=== PATIENT | male | born 1975 | race Caucasian/White ===

== ENCOUNTER 2018-03-20 12:57 | Emergency (ER) | payer SELFPAY ==
[~2018-03-20] VITALS: Ht 170.2 cm; Wt 84.5 kg
[~2018-03-20 12:57] MED LIST: IBUP-1050 PO; NAPR1TAB48 PO
[2018-03-20 12:59] VITALS: TEMP 36.8; Ht 170.2 cm; Wt 84.5 kg
--- NOTE | 2018-03-20 13:36 | DIAGNOSTIC IMAGING REPORT ---
R FOREARM 2 VIEWS ROUTINE CLINICAL HISTORY: R distal forearm pain, worse with movement. No trauma trauma. Pain. COMPARISON: None. DISCUSSION: The bones and joint spaces appear intact. There is no evidence of fracture, dislocation or bony disease. There is no evidence for soft tissue swelling. IMPRESSION: Negative study. The above report was generated using voice recognition software. It may contain grammatical, syntax or spelling errors. Electronically signed by: Ashutosh Bullard M.D. 03/20/2018 1:34 PM Dictated Date/Time: 03/20/2018 1:33 PM
--- NOTE | 2018-03-20 13:46 | EMERGENCY ROOM VISIT NOTE ---
History First contact with patient: 13:05 Chief Complaint: HAND PAIN/INJURY Stated Complaint: SHARP PAIN IN WRIST TO ELBOW/NUMBING OF HAND History of Present Illness The patient is a 43 year old male who presents to the Emergency Room via private vehicle accompanied by female with complaints of "sharp pain in wrist elbow/numbing of hand". The patient states that for the past 3 weeks he has been experiencing right wrist pain, worse at the distalmost lateral aspect of the right wrist. It is exacerbated by movements of the right thumb. He notes he is right-hand dominant. There is been no fevers or chills. No chest pain or shortness of breath. 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 He states that movement aggravates this. There has been no trauma. Review of Systems A complete 6-point Review of Systems was discussed with the patient, with pertinent positives and negatives listed in the History of Present Illness. All remaining Review of Systems questions can be considered negative unless otherwise specified. Past Medical/Surgical History Surgical Problems: (1) History of hernia repair Family History Cancer Diabetes mellitus Hypertension Social History Smoking Status: Current Every Day Smoker Alcohol Use: occasionally Marital Status: in relationship Housing Status: lives with significant other Occupation Status: employed Current/Historical Medications Scheduled Ibuprofen (Advil), 400 MG PO Q4H Naproxen (Naprosyn), 500 MG PO DAILY Scheduled PRN Hydrocodone/Acetaminophen 5MG/325MG ([place] 5MG/325MG), 1-2 TABLET PO Q6 PRN for Pain Physical Exam Vital Signs Date Time Temp Pulse Resp B/P (MAP) Pulse Ox O2 Delivery O2 Flow Rate FiO2 03/20/18 12:59 36.8 97 18 124/77 98 Room Air Physical Exam VITAL SIGNS - Vital signs and nursing notes were reviewed. Stable. GENERAL -43-year-old male appearing his stated age who is in no acute distress. Communicates well with provider and answers questions appropriately. SKIN - Without rashes. Slight edema noted overlying the patient's right lateral proximal wrist overlying the right extensor pollicis brevis. HEAD - NC/AT. EXTREMITIES - No clubbing or peripheral cyanosis. There is clubbing of the fingernails noted. Overlying the extensor pollicis brevis and the distal tendon with insertion site of the right thumb there is evidence of tenderness and minimal edema. Positive Addi test. He is neurovascularly intact in the right upper extremity. There is tenderness overlying the right extensor pollicis brevis extending proximally to that of the tendinous insertion site at the elbow as well. Full range of motion of the right wrist and hand noted with evidence of reproducible tenderness. Excellent pulse in the right wrist. No tenderness elicited above the location of the right elbow. Left upper extremity unremarkable. Medical Decision & Procedures ER Provider Diagnostic Interpretation: R FOREARM 2 VIEWS ROUTINE CLINICAL HISTORY: R distal forearm pain, worse with movement. No trauma trauma. Pain. COMPARISON: None. DISCUSSION: The bones and joint spaces appear intact. There is no evidence of fracture, dislocation or bony disease. There is no evidence for soft tissue swelling. IMPRESSION: Negative study. The above report was generated using voice recognition software. It may contain grammatical, syntax or spelling errors. Electronically signed by: Ashutosh Bullard M.D. 03/20/2018 1:34 PM Dictated Date/Time: 03/20/2018 1:33 PM Medical Decision Patient was seen and evaluated as above in room D5. Review was performed of nursing notes and vital signs. After obtaining a thorough history and physical examination the above work up was performed. He presents to us today with reproducible tenderness at the location of the right distal wrist with positive Addi test. I suspect likely de Quervain's tenosynovitis. He will be placed in a Velcro thumb spica splint for immobilization and was encouraged to decrease movement and use of the right wrist to the further inflammation could be avoided. He is already taking NSAIDs. I cautioned him upon use/correct use of these. He is to follow with orthopedics for further evaluation and management. He is to ice these regions and elevate. He is to also utilize [place] for severe pain. No red flags in the [place] drug monitoring system. He was given information for center volunteers in medicine as I do recommend follow-up with family doctor as well, as he states he has not seen one since 2002. The patient was educated upon management, had questions answered prior to discharge, and was discharged home in good condition. In the evaluation and treatment of this patient, the following differential diagnoses were considered: Wrist Sprain, Wrist Fracture, Wrist Dislocation, Scapholunate Dissociation, Carpal Fracture, Metacarpal Fracture, Radial Styloid Process Fracture, Ulnar Styloid Process Fracture, or Carpal Tunnel Syndrome. Impression Primary Impression: De Quervain's tenosynovitis, right Departure Information Dispostion Home / Self-Care Condition GOOD Prescriptions Hydrocodone/Acetaminophen 5MG/325MG ([place] 5MG/325MG) Tab 1-2 TABLET PO Q6 Y for Pain, #15 TAB For Initial Treatment Prov: Ramon Wills PA-C 03/20/18 Referrals No Doctor, Assigned (PCP) [facility] Edilson Reyes M.D. Patient Instructions ED De Quervain Tenosynovitis, My [facility] Additional Instructions You have been treated in the Emergency Department for Wrist Pain. You have been prescribed NORCO to be used for pain control. This is a narcotic medication. You cannot drive or consume alcohol while on this medicine. This medicine should only be used for pain that cannot be controlled with over-the- counter pain medicines. Please do not take Tylenol with the [place]. For pain control, you can use the following [id number] medicines (if >12 yo): - Regular strength (325mg/tab) Tylenol (acetaminophen) 2 tabs every 4-6 hours as needed. Do not exceed 12 tablets in a 24 hour period. Avoid taking more than 3 grams (3000 mg) of Tylenol per day. This includes any other sources of acetaminophen you may take on a regular basis. - Regular strength (200 mg/tab) Advil (ibuprofen) 1-2 tabs every 4-6 hours as needed. Do not exceed a dose of 3200 mg per day. If this is a recent injury (<24 hrs), ice can be applied to the area of pain for the first 3 days to help decrease pain and inflammation. You have been provided the number for an Orthopaedic Surgeon. You should call this number as soon as possible to establish a follow-up visit from today's Emergency Department visit. I also recommend following up with the family doctor for routine care. Keep the brace/splint in place until evaluated by Orthopedics. Return to the Emergency Department if your current symptoms worsen despite treatment course outlined above, or if you develop any of the following symptoms : intractable pain despite aforementioned treatment course or new onset of numbness or tingling of the fingers.
[2018-03-20] MEDS ORDERED: HYDR-5688 PO (14:15)
[2018-03-20 14:39] VITALS: BP 145/85; PULSE 89; O2SAT 99
== END 2018-03-20 14:40 | disposition home or self-care (01) ==
LOC: C.EDB 12:59 → C.EDD 14:40
DX: M65.4 Radial styloid tenosynovitis [de Quervain] (principal); R68.3 Clubbing of fingers; F17.200 Nicotine dependence, unspecified, uncomplicated

== ENCOUNTER 2018-07-02 11:46 | Emergency (ER) | payer SELFPAY ==
[~2018-07-02] VITALS: Ht 172.7 cm; Wt 85.8 kg
[~2018-07-02 11:46] MED LIST changes: +HYDR-5688 PO
[2018-07-02 11:52] VITALS: Ht 172.7 cm; Wt 85.8 kg
[2018-07-02 13:04] LABS: BASO % 0.5 %; BASO ABS # 0.05 K/uL (0-0.2); EOS % 4.3 %; EOS ABS # 0.42 K/uL (0-0.5); HEMATOCRIT 41.7 % (42-52); IG# 0.05 K/uL (0.00-0.02); LYMPH % 32.4 %; LYMPH ABS # 3.18 K/uL (1.2-3.4); MEAN CELL VOLUME 91.6 fL (80-100); MEAN CORPUSCULAR HEMOGLOBIN 30.8 pg (25-34); MEAN CORPUSCULAR HGB CONC 33.6 g/dl (32-36); MEAN PLATELET VOLUME 9.8 fL (7.4-10.4); MONO % 9.9 %; MONO ABS # 0.97 K/uL (0.11-0.59); NEUT % 52.4 %; NEUT ABS # 5.13 K/uL (1.4-6.5); PLATELET COUNT 262 K/uL (130-400); RED CELL DISTRIBUTION WIDTH CV 15.1 % (11.5-14.5); RED CELL DISTRIBUTION WIDTH SD 50.9 fL (36.4-46.3)
[2018-07-02 13:10] LABS: BLOOD UREA NITROGEN 8 mg/dl (7-18); CREATININE 0.96 mg/dl (0.60-1.40); GLUCOSE 96 mg/dl (70-99)
[2018-07-02 13:11] LABS: ALBUMIN 3.6 gm/dl (3.4-5.0); ALKALINE PHOSPHATASE 80 U/L (45-117); ALT/SGPT 30 U/L (12-78); AST/SGOT 22 U/L (15-37); CARBON DIOXIDE 25 mmol/L (21-32); LIPASE 1004 U/L (73-393); POTASSIUM 3.9 mmol/L (3.5-5.1); SODIUM 139 mmol/L (136-145); TOTAL PROTEIN 7.1 gm/dl (6.4-8.2)
--- NOTE | 2018-07-02 13:27 | DIAGNOSTIC IMAGING REPORT ---
ABDOMEN 2VIEW W/PA CHEST RTN HISTORY: 43 years-old Male abdominal pain diffuse chronic generalized abdominal pain. COMPARISON: Chest radiograph 10/18/2013, CT abdomen and pelvis 10/15/2013 TECHNIQUE: PA view of the chest with erect and supine views of the abdomen FINDINGS: Cardiomediastinal and hilar silhouettes are within normal limits. Mild right hemidiaphragmatic elevation. Linear subsegmental bibasilar opacities without pneumothorax, pleural effusion or overt pulmonary edema. Bones of the chest appear grossly intact. The bowel gas pattern is nonobstructive. No urolith identified. No pneumatosis or pneumoperitoneum. The bones appear grossly intact. IMPRESSION: 1. Nonobstructive bowel gas pattern. 2. Linear subsegmental bibasilar opacities suggest atelectasis. The above report was generated using voice recognition software. It may contain grammatical, syntax or spelling errors. Electronically signed by: Dylan Houser M.D. 07/02/2018 1:26 PM Dictated Date/Time: 07/02/2018 1:24 PM
[2018-07-02] MEDS ORDERED: SODIUM CHLORIDE 0.9% 1000ML 1,000 ML IV STA (13:47)
[2018-07-02] MEDS ORDERED: MoRPHine SULFATE 4 MG/ML 1 ML CARP\\VIAL IV STA (13:47)
--- NOTE | 2018-07-02 14:37 | EMERGENCY ROOM VISIT NOTE ---
History Report prepared by Vickie: Yin Alarcon Under the Supervision of: Dr. Rik Lomeli M.D. First contact with patient: 12:26 Chief Complaint: ABDOMINAL PAIN Stated Complaint: BOWEL AND STOMACH ISSUES AND BEING VERY WELL Nursing Triage Summary: pt states constipated for 4-5 days. states, "I have tried laxatives and other stuff, nothing works." pt states he feels the urge to go, but cannot produce a bm. pt states abd pain of 6/10 in all quardrants. pt states that he passe flatulace every so often. History of Present Illness The patient is a 43 year old male who presents to the Emergency Room with complaints of worsening abdominal pain starting 4 days ago. The patient states that his abdomen feels hard. He states that the pain radiates into his back and down into his groin. He notes that the pain is worse with movement. The patient denies hematuria, nausea, and vomiting. He notes that he smokes on average a pack a day. He notes a history of bilateral hernia surgery in 2013. Source of History: patient Onset: 4 dasy ago Position: abdomen Quality: other (hard, radiating) Timing: worsening Modifying Factors (Worsening): movement Associated Symptoms: + back pain, No nausea, No vomiting, No urinary symptoms Note: The patient complains of groin pain. Review of Systems See HPI for pertinent positives and negatives. A total of ten systems were reviewed and were otherwise negative. Past Medical & Surgical Surgical Problems: (1) History of hernia repair Family History Cancer Diabetes mellitus Hypertension Social History Smoking Status: Current Every Day Smoker Alcohol Use: occasionally Drug Use: none Marital Status: in relationship Housing Status: lives with significant other Occupation Status: employed Current/Historical Medications Scheduled Ondasetron Odt (Zofran Odt), 4 MG SL TID Allergies Coded Allergies: No Known Allergies (Verified , 07/02/18) Physical Exam Vital Signs Date Time Temp Pulse Resp B/P (MAP) Pulse Ox O2 Delivery O2 Flow Rate FiO2 07/02/18 16:57 76 16 121/81 99 07/02/18 15:40 121/81 07/02/18 15:13 76 16 128/89 99 Room Air 07/02/18 15:12 128/89 07/02/18 13:38 119/71 07/02/18 13:38 75 18 119/71 95 Room Air 07/02/18 11:52 36.7 89 20 131/80 98 Room Air Physical Exam Physical Exam GENERAL: He is oriented to person, place, and time. He appears well-developed and well-nourished. He does not appear distressed. HENT: Exam performed. Head: Normocephalic and atraumatic. Right Ear: External ear normal. No mastoid tenderness. Left Ear: External ear normal. No mastoid tenderness. Mouth/Throat: The oropharynx is clear and moist. No trismus in the jaw. No dental abscesses or uvula swelling. No oropharyngeal exudate or tonsillar abscesses. EYES: Conjunctivae and EOM are normal. Pupils are equal, round, and reactive to light. Right eye exhibits no discharge. Left eye exhibits no discharge. No scleral icterus. NECK: Normal range of motion. Neck supple. No JVD present. No spinous process tenderness present. No carotid bruit present. No rigidity. No tracheal deviation and normal range of motion present. No Brudzinski's sign and no Kernig 's sign noted. CV: Normal rate, regular rhythm, normal heart sounds and intact distal pulses. There is no peripheral edema. Palpable radial pulses bue. PULM/CHEST: Effort normal and breath sounds normal. No respiratory distress. No stridor. He has no wheezes. He has no rales. Chest Wall: He exhibits no tenderness. ABD: The abdomen is soft. Bowel sounds are normal. He has no distension. No mass is present. There is diffuse tenderness upon palpation. There is no rebound , no guarding, no Campo's sign and no tenderness at McBurney's point. Rovsig negative. : No inguinal hernia bilaterally. No lesions on genitalia. No penile discharge. MUSC/SKEL: Normal range of motion. There is no peripheral edema, tenderness or deformity. LYMPH: No cervical adenopathy. NEURO: He is alert and oriented to person, place, and time. He has normal strength. No cranial nerve deficit or sensory deficit. Coordination and gait normal. GCS eye subscore is 4. GCS verbal subscore is 5. GCS motor subscore is 6. Cerebellar tests wnl. SKIN: Skin is warm and dry. He is not diaphoretic. PSYCH: He has a normal mood and affect. Behavior is normal. Judgment and thought content normal. Medical Decision & Procedures ER Provider Diagnostic Interpretation: Radiology results as stated below per my review and radiologist interpretation: ABDOMEN 2VIEW W/PA CHEST RTN HISTORY: 43 years-old Male abdominal pain diffuse chronic generalized abdominal pain. COMPARISON: Chest radiograph 10/18/2013, CT abdomen and pelvis 10/15/2013 TECHNIQUE: PA view of the chest with erect and supine views of the abdomen FINDINGS: Cardiomediastinal and hilar silhouettes are within normal limits. Mild right hemidiaphragmatic elevation. Linear subsegmental bibasilar opacities without pneumothorax, pleural effusion or overt pulmonary edema. Bones of the chest appear grossly intact. The bowel gas pattern is nonobstructive. No urolith identified. No pneumatosis or pneumoperitoneum. The bones appear grossly intact. IMPRESSION: 1. Nonobstructive bowel gas pattern. 2. Linear subsegmental bibasilar opacities suggest atelectasis. The above report was generated using voice recognition software. It may contain grammatical, syntax or spelling errors. Electronically signed by: Dylan Houser M.D. 07/02/2018 1:26 PM Dictated Date/Time: 07/02/2018 1:24 PM Laboratory Results 07/02/18 12:38 Red Blood Count 4.55, Mean Corpuscular Volume 91.6, Mean Corpuscular Hemoglobin 30.8, Mean Corpuscular Hemoglobin Concent 33.6, Mean Platelet Volume 9.8, Neutrophils (%) (Auto) 52.4, Lymphocytes (%) (Auto) 32.4, Monocytes (%) (Auto) 9.9, Eosinophils (%) (Auto) 4.3, Basophils (%) (Auto) 0.5, Neutrophils # (Auto) 5.13, Lymphocytes # (Auto) 3.18, Monocytes # (Auto) 0.97, Eosinophils # (Auto) 0.42, Basophils # (Auto) 0.05 07/02/18 12:38 Test 07/02/18 12:38 07/02/18 13:15 White Blood Count 9.80 K/uL (4.8-10.8) Red Blood Count 4.55 M/uL (4.7-6.1) Hemoglobin 14.0 g/dL (14.0-18.0) Hematocrit 41.7 % (42-52) Mean Corpuscular Volume 91.6 fL (80-100) Mean Corpuscular Hemoglobin 30.8 pg (25-34) Mean Corpuscular Hemoglobin Concent 33.6 g/dl (32-36) Platelet Count 262 K/uL (130-400) Mean Platelet Volume 9.8 fL (7.4-10.4) Neutrophils (%) (Auto) 52.4 % Lymphocytes (%) (Auto) 32.4 % Monocytes (%) (Auto) 9.9 % Eosinophils (%) (Auto) 4.3 % Basophils (%) (Auto) 0.5 % Neutrophils # (Auto) 5.13 K/uL (1.4-6.5) Lymphocytes # (Auto) 3.18 K/uL (1.2-3.4) Monocytes # (Auto) 0.97 K/uL (0.11-0.59) Eosinophils # (Auto) 0.42 K/uL (0-0.5) Basophils # (Auto) 0.05 K/uL (0-0.2) RDW Standard Deviation 50.9 fL (36.4-46.3) RDW Coefficient of Variation 15.1 % (11.5-14.5) Immature Granulocyte % (Auto) 0.5 % Immature Granulocyte # (Auto) 0.05 K/uL (0.00-0.02) Anion Gap 7.0 mmol/L (3-11) Est Creatinine Clear Calc Drug Dose 107.9 ml/min Estimated GFR () 113.3 Estimated GFR (Non- 97.8 BUN/Creatinine Ratio 8.2 (10-20) Calcium Level 9.0 mg/dl (8.5-10.1) Total Bilirubin 0.3 mg/dl (0.2-1) Direct Bilirubin < 0.1 mg/dl (0-0.2) Aspartate Amino Transf (AST/SGOT) 22 U/L (15-37) Alanine Aminotransferase (ALT/SGPT) 30 U/L (12-78) Alkaline Phosphatase 80 U/L (45-117) Total Protein 7.1 gm/dl (6.4-8.2) Albumin 3.6 gm/dl (3.4-5.0) Lipase 1004 U/L (73-393) Urine Color YELLOW Urine Appearance CLEAR (CLEAR) Urine pH 6.5 (4.5-7.5) Urine Specific [place] 1.014 (1.000-1.030) Urine Protein NEG (NEG) Urine Glucose (UA) NEG (NEG) Urine Ketones NEG (NEG) Urine Occult Blood NEG (NEG) Urine Nitrite NEG (NEG) Urine Bilirubin NEG (NEG) Urine Urobilinogen NEG (NEG) Urine Leukocyte Esterase NEG (NEG) Laboratory results reviewed by me Medications Administered Medications (Trade) Dose Ordered Sig/Carlos Route Start Time Stop Time Status Last Admin Dose Admin Sodium Chloride 1,000 ml @ 999 mls/hr Q1H1M STAT IV 07/02/18 13:47 07/02/18 14:47 DC 07/02/18 14:09 999 MLS/HR Morphine Sulfate (MoRPHine SULFATE INJ) 4 mg NOW STAT IV 07/02/18 13:47 07/02/18 13:49 DC 07/02/18 14:10 4 MG Miscellaneous (Soap Suds Enema) 1 ea NOW ONCE HI 07/02/18 15:30 07/02/18 15:40 DC 07/02/18 16:18 1 EA ED Course 1227: The patient was evaluated in room A12B. A complete history and physical exam was performed. 1347: Ordered Morphine Sulfate 4 mg IV, NSS 1000 ml @ 999 mls/hr IV. 1356: I reevaluated the patient at this time. His vital signs were stable. Repeat abdominal exam revealed that he is still having tenderness. His labs show an elevated Lipase of 1004. I discussed the need for admission for Pancreatitis with the patient. He verbally agrees and understands the treatment plan. 1404: Discussed the patient's case with Dr. Collazo- [facility] Hospitalist. The patient will be evaluated for further treatment and disposition. 1640: The patient was evaluated by Dr. Collazo's service. They ordered a CT of the abdomen without contrast. The CT showed no abnormalities. Given the results of the CT showing no abnormalities, his service believe that the patient can go home, as he doesn't want anyone to stay either. I discussed with them that a CT of the abdomen without contrast is not standard of care to truly visualize if it is pancreatitis or not. Despite not being with contrast, they state that the patient doesn't want to stay and can go home. I discussed this with the patient and he doesn't want to stay in the hospital after speaking with the hospitalist. He will follow up with GI. Medical Decision 1227: The patient was evaluated in room A12B. A complete history and physical exam was performed. 1347: Ordered Morphine Sulfate 4 mg IV, NSS 1000 ml @ 999 mls/hr IV. 1356: I reevaluated the patient at this time. His vital signs were stable. Repeat abdominal exam revealed that he is still having tenderness. His labs show an elevated Lipase of 1004. I discussed the need for admission for Pancreatitis with the patient. He verbally agrees and understands the treatment plan. 1404: Discussed the patient's case with Dr. John CARDENAS Hospitalist. The patient will be evaluated for further treatment and disposition. 1640: The patient was evaluated by Dr. Collazo's service. They ordered a CT of the abdomen without contrast. The CT showed no abnormalities. Given the results of the CT showing no abnormalities, his service believe that the patient can go home, as he doesn't want anyone to stay either. I discussed with them that a CT of the abdomen without contrast is not standard of care to truly visualize if it is pancreatitis or not. Despite not being with contrast, they state that the patient doesn't want to stay and can go home. I discussed this with the patient and he doesn't want to stay in the hospital after speaking with the hospitalist. He will follow up with GI. Medication Reconcilliation Current Medication List: was personally reviewed by me Blood Pressure Screening Patient's blood pressure: Normal blood pressure Blood pressure disposition: Did not require urgent referral Consults Time Called: [id number] Consulting Physician: Dr. John CARDENAS Hospitalist Returned Call: [phone] Discussed the patient's case with Dr. John CARDENAS Hospitalist. The patient will be evaluated for further treatment and disposition. Impression Primary Impression: Pancreatitis Scribe Attestation The scribe's documentation has been prepared under my direction and personally reviewed by me in its entirety. I confirm that the note above accurately reflects all work, treatment, procedures, and medical decision making performed by me. The chart was completed utilizing [employer] voice recognition software. Grammatical errors, random word insertions, pronoun errors, and incomplete sentences are an occasional consequence of this system due to software limitations, ambient noise, and hardware issues. Any formal questions or concerns about the content, text, or information contained within the body of this dictation should be directly addressed to the physician for clarification. Departure Information Dispostion Home / Self-Care Prescriptions Ondasetron Odt (ZOFRAN ODT) 4 Mg Tab 4 MG SL TID for Nausea, #30 TAB Prov: Rik Lomeli M.D. 07/02/18 Referrals No Doctor, Assigned (PCP) Forms Call Back Authorization, HOME CARE DOCUMENTATION FORM, IMPORTANT VISIT INFORMATION Patient Instructions [facility] Additional Instructions Return to the emergency department for develop fever greater 100.4, vomiting, black stools, blood in your stool, chest pain, typically breathing, abdominal pain worsens. Problem Qualifiers Primary Impression: Pancreatitis Chronicity: acute Pancreatitis type: unspecified pancreatitis type Acute pancreatitis complication: unspecified Qualified Codes: K85.90 - Acute pancreatitis without necrosis or infection, unspecified
[2018-07-02] MEDS ORDERED: BISACODYL 10 MG SUPP PR STA (15:17)
[2018-07-02] MEDS ORDERED: SOAP SUDS ENEMA PR ONE (15:30)
--- NOTE | 2018-07-02 16:22 | DIAGNOSTIC IMAGING REPORT ---
CT SCAN OF THE ABDOMEN AND PELVIS WITHOUT CONTRAST CLINICAL HISTORY: ELEVATED LIPASE, RIGHT FLANK PAIN, POSSIBLE PANCREATITIS COMPARISON STUDY: 10/15/2013 TECHNIQUE: CT scan of the abdomen and pelvis was performed from the lung bases to the proximal femurs. Images are reviewed in the axial, sagittal, and coronal planes. IV contrast was not administered for this examination. A dose lowering technique was utilized adhering to the principles of ALARA. CT DOSE: 968.21 mGycm FINDINGS: Lower chest: There are moderate basilar atelectatic changes. Liver: The unenhanced liver is normal in size, contour, and attenuation. There is no intrahepatic biliary ductal dilatation. Gallbladder: Unremarkable. Spleen: Normal in size and attenuation. Pancreas: Unremarkable. Adrenal glands: Unremarkable. Kidneys: There is no hydronephrosis. No renal, ureteral, or bladder calculi are visualized. Bowel: There are no transition zones indicate bowel obstruction. The appendix appears normal. There is no acute diverticulitis. Peritoneum: There is no intraperitoneal free air or abdominal ascites. Vasculature: The abdominal aorta is normal in course and caliber. Adenopathy: None. Pelvic viscera: The bladder, and pelvic viscera are unremarkable. Skeletal structures: No destructive osseous lesions are seen. IMPRESSION: 1. Basilar atelectasis 2. No evidence of bowel obstruction. No evidence of free air 3. No renal, ureteral, or bladder calculi identified 4. Normal appendix 5. No pancreatic abnormalities are visualized on this noncontrast study Electronically signed by: Jamshid Collado M.D. 07/02/2018 4:21 PM Dictated Date/Time: 07/02/2018 4:16 PM
[2018-07-02] MEDS ORDERED: ONDA4TAB10 SL (16:48)
--- NOTE | 2018-07-02 16:55 | Medical Consult ---
Consultation Date of Consultation: Jul 02, 2018. Attending Physician: Dr. Lomeli Reason for Consultation: abdominal pain, elevated lipase History of Present Illness Mr. Parra started having pain in his abdomen four days ago. He has been constipated without a bowel movement since Friday. No nausea or vomiting, no change in appetite. His abdominal pain is lower in his belly like he really needs to have a bowel movement. He feels constantly full. He does have pain up his right side intermittently especially with movement which is painful enough to take his breath way. The back pain has also been since Friday. He did have bilateral inguinal hernia surgery in 2013. He was at [employer] Friday and Friday. He drinks 2 beers or so every two or three weeks. He is a smoker, a pack per day. ROS Constitutional: no chills, aches, sweats or fever Respiratory: no sob,cough, sputum, or wheezing Cardiac: no chest pain, palpitations, edema, orthopnea or lightheadedness GI: no abdominal pain, nausea, vomiting, diarrhea or constipation : no dysuria or hesitancy Extremities: no joint pain or weakness Skin: no rash All other systems reviewed and negative Past Medical/Surgical History Medical Problems: (1) De Quervain's tenosynovitis, right Status: Acute (2) Pancreatitis Status: Acute Family History Cancer Diabetes mellitus Hypertension Father had a heart attack in his early 40s, of lung cancer Social History Smoking Status: Current Every Day Smoker Drug Use: none Marital Status: in relationship Housing Status: lives with significant other Occupation Status: employed Allergies Coded Allergies: No Known Allergies (Verified , 07/02/18) Home Medications Active No Active Prescriptions or Reported Medications Review of Systems General: no distress Eyes: normal inspection, PERLL Respiratory: chest non tender, clear to auscultation, normal breath sounds, no respiratory distress, no accessory muscle use Cardiac: regular rate and rhythm, no rub or gallop, no murmur, no edema, no jvd GI/: active bowel sounds, lower abdominal pain bilaterally, mild distention, mildly firm, right costovertebral tenderness Extremities: normal range of motion, normal strength, non tender Neuro/Psych: alert and oriented x 3, normal mood and affect Skin: normal color, dry Physical Exam Date Time Temp Pulse Resp B/P (MAP) Pulse Ox O2 Delivery O2 Flow Rate FiO2 07/02/18 15:40 121/81 07/02/18 15:13 76 16 128/89 99 Room Air 07/02/18 15:12 128/89 07/02/18 13:38 119/71 07/02/18 13:38 75 18 119/71 95 Room Air 07/02/18 11:52 36.7 89 20 131/80 98 Room Air Laboratory Results Last 24 Hours Test 07/02/18 12:38 07/02/18 13:15 White Blood Count 9.80 K/uL Red Blood Count 4.55 M/uL Hemoglobin 14.0 g/dL Hematocrit 41.7 % Mean Corpuscular Volume 91.6 fL Mean Corpuscular Hemoglobin 30.8 pg Mean Corpuscular Hemoglobin Concent 33.6 g/dl Platelet Count 262 K/uL Mean Platelet Volume 9.8 fL Neutrophils (%) (Auto) 52.4 % Lymphocytes (%) (Auto) 32.4 % Monocytes (%) (Auto) 9.9 % Eosinophils (%) (Auto) 4.3 % Basophils (%) (Auto) 0.5 % Neutrophils # (Auto) 5.13 K/uL Lymphocytes # (Auto) 3.18 K/uL Monocytes # (Auto) 0.97 K/uL Eosinophils # (Auto) 0.42 K/uL Basophils # (Auto) 0.05 K/uL RDW Standard Deviation 50.9 fL RDW Coefficient of Variation 15.1 % Immature Granulocyte % (Auto) 0.5 % Immature Granulocyte # (Auto) 0.05 K/uL Sodium Level 139 mmol/L Potassium Level 3.9 mmol/L Chloride Level 107 mmol/L Carbon Dioxide Level 25 mmol/L Anion Gap 7.0 mmol/L Blood Urea Nitrogen 8 mg/dl Creatinine 0.96 mg/dl Est Creatinine Clear Calc Drug Dose 107.9 ml/min Estimated GFR () 113.3 Estimated GFR (Non- 97.8 BUN/Creatinine Ratio 8.2 Random Glucose 96 mg/dl Calcium Level 9.0 mg/dl Total Bilirubin 0.3 mg/dl Direct Bilirubin < 0.1 mg/dl Aspartate Amino Transf (AST/SGOT) 22 U/L Alanine Aminotransferase (ALT/SGPT) 30 U/L Alkaline Phosphatase 80 U/L Total Protein 7.1 gm/dl Albumin 3.6 gm/dl Lipase 1004 U/L Urine Color YELLOW Urine Appearance CLEAR Urine pH 6.5 Urine Specific [place] 1.014 Urine Protein NEG Urine Glucose (UA) NEG Urine Ketones NEG Urine Occult Blood NEG Urine Nitrite NEG Urine Bilirubin NEG Urine Urobilinogen NEG Urine Leukocyte Esterase NEG Assessment & Plan This is a 43 year old man here for abdominal pain. There was an elevation in his lipase at 1000. A non contrast CT did not show any pancreatic abnormality. I do not think a contrast CT is warranted given that the patient did not have any symptoms of pancreatitis such as epigastric tenderness or any vomiting or decreased appetite. I do think he has some constipation. I reviewed the CT with attending physician and he does appear to have stool in his rectum. Would recommend soap suds enema now. I would not recommend admission and patient would like to go home. Discharge with clear liquid diet and cathartics. Patient should return to the ED if he develops vomiting or increased epigastric pain. I will also put in a request with the nurse navigator to set him up for a follow up with a pcp. I discussed these recommendations with the patient and he vocalized his understanding and agrees with the plan. CT Abdomen/pelvis w/o contrast showed: IMPRESSION: 1. Basilar atelectasis 2. No evidence of bowel obstruction. No evidence of free air 3. No renal, ureteral, or bladder calculi identified 4. Normal appendix 5. No pancreatic abnormalities are visualized on this noncontrast study SECTION HAND HELPER Physician Supervision Note: I discussed with Bertha Stratton SECTION HAND HELPER and agree with findings and plan as documented in the note. Any exceptions or clarifications are listed here: None I visited the patient and examined him in the emergency department. His abdominal exam was only with minor tenderness normoactive bowel sounds soft no rebound no guarding he had no evidence of recurrent inguinal hernias. Chayito and I reviewed the CAT scan report did not show any evidence of acute pancreatitis noted the patient exhibit any clinical symptoms that are in alignment with his elevated lipase. I do believe this is a spurious lab reading. Patient's biggest concern when I saw him was a lack of having a bowel movement 5 days which was achieved in the ER. The patient will be discharged home encouraged to have a light meal to clear liquid diet for the next 24 hours avoiding alcohol for the next 1 week to establish care with a primary care provider. As always if the patient does worsen he should return to the emergency department Documented By: Raphael Lira
[2018-07-02 16:57] VITALS: BP 121/81; PULSE 76; O2SAT 99
== END 2018-07-02 16:55 | disposition home or self-care (01) ==
LOC: C.EDB 11:48 → C.EDA 16:55
DX: K85.90 Acute pancreatitis without necrosis or infection, unspecified (principal); F17.200 Nicotine dependence, unspecified, uncomplicated

== ENCOUNTER 2020-02-19 18:00 | Inpatient (IN) ==
[2020-02-19] MEDS ORDERED: METOCLOPRAMIDE HCL INJ 5 MG/ML 2 ML VIAL ONE (18:03)
--- OUTSIDE RECORDS SUMMARY | 2020-02-19 18:03 | External Medical Summary | Continuity of Care Document ---
:1975 Author Name Merry Birch, Provider Address Unavailable Unavailable , Care Team Providers Name Role Phone Иван Brewster [email or web address] PCP, UNKNOWN Unavailable Unavailable Unavailable Unavailable Unavailable Problems Dyslipidemia (272.4) (E78.5) Acute myocardial infarction of inferior wall (410.40) (I21.1 9) Non-sustained ventricular tachycardia (427.1) (I47.2) Current smoker (305.1) (F17.200) Allergies and Adverse Reactions Allergy history not documented Medications Brilinta 90 MG Oral Tablet; take 1 tablet by mouth twice a d ay Refills: 0 Metoprolol Tartrate 25 MG Oral Tablet; take 1/2 tablet by mo uth twice a day Refills: 0 Lisinopril 2.5 MG Oral Tablet; TAKE 1 TABLET BY MOUTH ONCE DAILY IN THE MORNING Refills: 0 Atorvastatin Calcium 80 MG Oral Tablet; TAKE 1 TABLET BY MOUTH ONCE DAILY IN THE MORNING Refills: 0 Aspirin Low Dose 81 MG TABS; TAKE 1 TABLET BY MOUTH IN THE M ORNING Refills: 0 Procedures Procedures not documented Immunizations Immunizations not documented Social History - Smoking Status Smoker Plan of Treatment Planned Observations Planned Goals not documented Results No Known Results Results not documented Encounters Appointment; Иван Brewster M.D. 05-Oct-2018 15:00 Encounter Diagnosis: Problem not documented Appointment; Иван Brewster M.D. 01-Jan-2019 11:30 Encounter Diagnosis: Problem not documented
[2020-02-19] MEDS ORDERED: MoRPHine SULFATE 10 MG/ML CARP/VIAL ONE (18:04)
[2020-02-19] MEDS ORDERED: TICAGRELOR 90 MG TAB PO ONE (18:08)
--- NOTE | 2020-02-19 18:11 | XRay Report ---
XR chest 1V portable HISTORY: 45 years-old Male Chest pain acute atypical chest pain COMPARISON: Chest radiograph 09/17/2018 TECHNIQUE: Portable AP view of the chest FINDINGS: Cardiac silhouette is upper limits of normal in size, unchanged. No pneumothorax, pleural effusion, a irspace consolidation or overt pulmonary edema. Minimal convex right curvature of the upper thoracic spine. The bones appear grossly intact. IMPRESSION: No acute process. ACT 112: Negative or not required by law. The above report was generated using voice recognition software. It may contain grammatical, syntax o r spelling errors. Electronically signed by: Dylan Houser M.D. 02/19/2020 6:10 PM
[2020-02-19] MEDS ORDERED: HEPARIN (PORCINE) 1000 UNIT/ML 10 ML (CATH LAB USE ONLY) ONE (18:13)
[2020-02-19] MEDS ORDERED: NiCARDipine HCL INJ 2.5 MG/ML 10 ML AMP ONE (18:13)
[2020-02-19] MEDS ORDERED: NITROGLYCERIN/D5W 100MCG/ML 20ML SYR ONE (18:14)
[2020-02-19] MEDS ORDERED: fentaNYL citrate 100 MCG/2 ML VIAL ONE (18:14)
[2020-02-19] MEDS ORDERED: MIDAZOLAM HCL 1 MG/ML 2ML VIAL ONE (18:14)
[2020-02-19] MEDS ORDERED: DiphenhydrAMINE HCL 50 MG/ML VIAL IV STA (18:16)
[2020-02-19] MEDS ORDERED: DiphenhydrAMINE HCL 50 MG/ML VIAL ONE (18:17)
[2020-02-19] MEDS ORDERED: HEPARIN SOD (PORCINE) 1000 UNIT/ML 10 ML VIAL IV ONE (18:18)
[2020-02-19] MEDS ORDERED: HEPARIN SOD (PORCINE) 1000 UNIT/ML 10 ML VIAL ONE (18:19)
--- NOTE | 2020-02-19 18:29 | Pre Anesthesia Assessment ---
Date of Service February 19, 2020 Pre Sedation Assessment Vital Signs Temp Pulse Pulse Resp BP BP Pulse Ox 02/19/20 17:58 98.4 F 99 H 99 H 22 124/84 124/84 96 Cardiovascular RRR, no murmur, no edema Respiratory normal respiratory effort, lungs clear to auscultation Pre-Sedation Airway Assessment Smoking Status: Current every day smoker Hx Sleep Apnea: No Hx Difficult Intubation: No Oral Cavity: + Dental Abnormalities Mallampati Class: II ASA: ASA4 Procedure Planning Contraindications for Sedation: none Current Medications Reviewed: Yes Notes The planned sedation has been discussed with the patient. Informed Consent was obtained. I have identified the patient, determined the appropriateness of sedation and have assessed the patient immediately prior to the procedure. All medicine(s) and interventions are by my order.
--- NOTE | 2020-02-19 18:32 | Cardiology Consultation ---
Date of Consultation February 19, 2020 Assessment & Plan (1) Acute VT, inferior wall: Presentation consistent with inferior STEMI and concerning for very late stent thrombosis. Recommend proceeding with emergent cardiac catheterization and likely primary PCI. No apparent contraindications to procedure. Discussed risks, benefits, alternatives of procedure with patient and they are willing to proceed. Given IV heparin and ticagrelor 180 mg in the ED. Further recommendations pending findings of coronary angiography. History of Present Illness History of Present Illness 45-year-old man here with acute chest pain and ECG concerning for acute VT. Patient seen emergently in the ED after heart alert activated from ambulance in route. Past cardiac history remarkable for inferior STEMI in September 2018 treated with primary PCI and single drug-eluting stent to latemid RCA. Other medical issues include dyslipidemia, ongoing tobacco abuse and family history of premature coronary disease. Chest pain began approximately 1 hour prior to arrival while moving his motorcycle around his driveway. Describes 10 out of 10 pain with associated nausea, diaphoresis. Pain similar but more severe than what had with prior event. Of note had recently stopped prior cardiac meds due to cost. Chest pain at time of interview for/10. Hemodynamically stable. EKG showed inferior ST elevations. Allergies Allergy/AdvReac Type Severity Reaction Status Date / Time No Known Allergies Allergy Verified 02/19/20 18:09 Home Medications Home Medications Medication Instructions Recorded Confirmed Type No Known Home Medications 02/13/19 02/19/20 History Patient History Medical History (Updated 02/28/19 @ 00:02 by Marcello Ahn) Acute VT, inferior wall (Acute) Chest pain (Acute) Dyslipidemia Inguinal hernia, bilateral (Acute) Myocardial infarction, posterior wall (Acute) Non-sustained ventricular tachycardia Syncope (Acute) Surgical History (Updated 09/17/18 @ 17:09 by Beena Matthew) History of hernia repair (Resolved 2012) Family History (Updated 09/17/18 @ 17:09 by Beena Matthew) Other Myocardial infarction Social History (Updated 02/17/19 @ 18:42 by Russell Navarrete PA-C) Preferred Language: Wallisian Communication Ability: Effective Visual Impairment: No Limitations Hearing Ability: Normal Beliefs That Will Affect Care: None marital status: Single Current Living Situation: Significant Other current occupational status: employed Feels Safe at Home: Yes Smoking Status: Current every day smoker Tobacco Type: cigarettes ; Cigarettes Per Day: 20 ; Hx Alcohol Use: Yes Alcohol type: hard liquor Hx Substance Use: No Results & Data ([facility]) Vital Signs (Past 12 Hours) Vital Signs Temp Pulse Pulse Resp BP BP Pulse Ox 02/19/20 17:58 98.4 F 99 H 99 H 22 124/84 124/84 96 PG Care Time/CCT Total # of Minutes Spent Total Time Spent with Patient: Total time spent is greater than 50% in coordination of care (as documented) at patient's floor/unit and/or counseling patient: Coding Diagnoses Acute VT, inferior wall I21.19
[2020-02-19] MEDS ORDERED: NOREPINEPHRINE BITARTRATE 1 MG/ML 4 ML VIAL (CATH LAB USE ONLY) ONE (18:48)
--- NOTE | 2020-02-19 18:49 | Emergency Department Note ---
History of Present Illness General Chief complaint: Chest Pain Stated complaint: cardiac alert Source: patient, EMS, RN notes reviewed and old records reviewed Mode of arrival: EMS Limitations: no limitations History of Present Illness Provider complaint: chest pain Onset (ago): hour(s) 1 Location: chest Radiation: neck Severity: moderate Pain Consistency: + constant Maximum Pain Intensity: 7 Current Pain Intensity: 7 Quality: + crushing Relieved By: + medication (NSS, nitro) Treatments prior to arrival: other (NSS, aspirin, Nitro) This is a 45-year-old male who was moving a motorcycle into his house approximately 1 hour ago when he developed severe chest pain. An ambulance was called. The patient in the meanwhile took 324 mg of aspirin. In the ambulance the patient was given 2 nitro as well as normal saline bolus and Zofran. Upon arrival to the emergency department the patient describes the pain as crushing radiating up into his neck. He has a history of a stent placed back in 2017 ho sabrina stopped taking his medications due to cost several months ago. Home Medications Home Medications Medication Instructions Recorded Confirmed Type No Known Home Medications 02/13/19 02/19/20 History Allergies Allergy/AdvReac Type Severity Reaction Status Date / Time No Known Allergies Allergy Verified 02/19/20 18:09 Past Med/Surg History Medical History (Updated 02/19/20 @ 19:45 by MARCIN Aiken) Acute FL, inferior wall (Acute) Chest pain (Acute) Dyslipidemia Inguinal hernia, bilateral (Acute) Myocardial infarction, posterior wall (Acute) Non-sustained ventricular tachycardia Syncope (Acute) Surgical History (Updated 02/19/20 @ 19:45 by MARCIN Aiken) History of hernia repair (Resolved 2012) Stented coronary artery Family History Other Myocardial infarction Social History Preferred Language: Yemeni Communication Ability: Effective Visual Impairment: No Limitations Hearing Ability: Normal Reconciliation Manager Required: No Beliefs That Will Affect Care: None marital status: Single Current Living Situation: Alone current occupational status: employed Other Information That Helps Us Care for You: No Feels Safe at Home: Yes Safety Concerns: Feels Safe At This Time Smoking Status: Current every day smoker Tobacco Type: cigarettes ; Cigarettes Per Day: 20 ; Do You Dip or Chew Tobacco: No ; Second Hand Exposure: No ; Tobacco Cessation Education Requested by Patient: No Hx Alcohol Use: Yes Alcohol type: wine Hx Substance Use: Yes substance use type: marijuana Last Used Substance: Days (ago) Review of Systems A total of 10 systems reviewed and were otherwise negative Physical Exam Vital Signs Vital Signs - 24 hr 02/19/20 17:58 02/19/20 18:03 02/19/20 18:15 Temperature 36.9 C Temperature Source Oral Pulse Rate 99 H 95 H 108 H Pulse Rate [Apical] 99 H Respiratory Rate 22 19 26 H Respiratory Effort / Characteristics Short of Breath Blood Pressure 124/84 124/84 Blood Pressure [Right Arm] 124/84 Blood Pressure Mean 97 90 Blood Pressure Mean [Right Arm] 97 Blood Pressure Position Lying Pulse Oximetry 96 Oxygen Delivery Method Room Air Sepsis Recent Fever Within 48 Hours No Sepsis New/Unexplained Change in Mental Status No Sepsis Action Taken by Nursing No Action Required 02/19/20 18:25 Temperature 36.9 C Temperature Source Oral Pulse Rate 92 H Pulse Rate [Apical] 92 H Respiratory Rate 20 Respiratory Effort / Characteristics Short of Breath Blood Pressure 122/84 Blood Pressure [Right Arm] 122/82 Blood Pressure Mean Blood Pressure Mean [Right Arm] 95 Blood Pressure Position Pulse Oximetry 96 Oxygen Delivery Method Room Air Sepsis Recent Fever Within 48 Hours Sepsis New/Unexplained Change in Mental Status Sepsis Action Taken by Nursing GENERAL: Patient is a ashen-appearing well-nourished male in moderate distress HEAD: Normocephalic atraumatic EYES: Ocular movements intact pupils equal and react to light OROPHARYNX mucous membranes are moist no exudates present no erythema or edema present NECK: Supple no nuchal rigidity CHEST: Good equal expansion LUNGS: Clear and equal to auscultation CARDIAC: Normal S1 and S2 ABDOMEN: Soft nontender no guarding BACK: No CVA tenderness EXTREMITIES: No pain upon palpation normal muscle strength in all groups no clubbing cyanosis or edema NEURO: Patient is following commands is answering questions appropriately. Alert and oriented x3 Cranial Nerves 2-12 grossly intact Course Administered Medications Metoprolol Tartrate (Lopressor) 12.5 mg PO BID JANAK Stop: 03/20/20 20:59 Last Admin: 02/19/20 21:53 Dose: 12.5 mg Documented by: [id number] Discontinued Medications Diphenhydramine HCl (Benadryl) 25 mg IV NOW STA Stop: 02/19/20 18:17 Last Admin: 02/19/20 18:18 Dose: 25 mg Documented by: [id number] Diphenhydramine HCl (Benadryl) Confirm Administered Dose 50 mg .ROUTE .STK-MED ONE Stop: 02/19/20 18:18 Last Admin: 02/19/20 18:24 Dose: Not Given Documented by: [id number] Heparin Sodium (Porcine) (Heparin Iv Bolus) 5,000 units IV ONE ONE Stop: 02/19/20 18:19 Last Admin: 02/19/20 18:21 Dose: 5,000 units Documented by: [id number] Cosigned by: [id number] Heparin Sodium (Porcine) (Heparin Iv Bolus) Confirm Administered Dose 10,000 units .ROUTE .STK-MED ONE Stop: 02/19/20 18:20 Last Admin: 02/19/20 18:25 Dose: Not Given Documented by: [id number] Metoclopramide HCl (Reglan) Confirm Administered Dose 10 mg .ROUTE .STK-MED ONE Stop: 02/19/20 18:04 Last Admin: 02/19/20 18:05 Dose: 10 mg Documented by: [id number] Morphine Sulfate (Morphine Sulfate) Confirm Administered Dose 10 mg .ROUTE .STK- MED ONE Stop: 02/19/20 18:05 Last Increment: 02/19/20 18:08 Dose: 8 mg Documented by: [id number] Potassium Chloride (Klor-Con M20) 20 meq PO NOW STA Stop: 02/19/20 20:41 Last Admin: 02/19/20 21:53 Dose: 20 meq Documented by: [id number] Ticagrelor (Brilinta) 180 mg PO ONE ONE Stop: 02/19/20 18:09 Last Admin: 02/19/20 18:12 Dose: 180 mg Documented by: [id number] Medical Decision Making Differential Diagnosis Cardiac ischemia, aortic dissection, pulmonary embolism, pneumothorax, pneumonia, pericarditis, myocarditis, esophageal rupture, GERD, cholecystitis, pancreatitis, musculoskeletal, as well as other pathologies. Medical Records Attestation: I reviewed the patient's medical records. Home Medications Current Medication List: was personally reviewed by me Laboratory Data Attestation: I reviewed the patient's lab results. Result diagrams: 02/19/20 19:57 02/19/20 19:57 Lab Results 02/19/20 Range/Units 18:55 Activ Coag Time Kaolin 252 H (94-140) SECONDS Imaging Data Radiologist's Impression: [place], [place] [phone] XRay Report Patient: LUBNA KING JRAdmit Date: 02/19/20 MR#: [id number]: [address] Acct ID:[id number]: # A Date: 1975[facility] Zip: [place] [address] Age: 45Location: ED Sex: M Room/Bed: Att Phy:Diagnosis: cardiac alert Neli Phy: PCP,NOService Date: 02/19/20 Fam Phy:Interpreting Phy: Mason Houser Admit Phy: Ordering Phy: Adonis Means MD cc: ~ XR chest 1V portable HISTORY: 45 years-old Male Chest pain acute atypical chest pain COMPARISON: Chest radiograph 09/17/2018 TECHNIQUE: Portable AP view of the chest FINDINGS: Cardiac silhouette is upper limits of normal in size, unchanged. No pneumothorax, pleural effusion, airspace consolidation or overt pulmonary edema. Minimal convex right curvature of the upper thoracic spine. The bones appear grossly intact. IMPRESSION: No acute process. ACT 112: Negative or not required by law. The above report was generated using voice recognition software. It may contain grammatical, syntax or spelling errors. Electronically signed by: Dylan Houser M.D. 02/19/2020 6:10 PM Dictated: 02/19/201808 Transcribed: 02/19/201808 ECG Data Indication: chest pain Rate (beats per minute): 83 Rhythm: atrial fibrillation Findings: + ST depression (Lateral), + ST elevation (Inferior) and + acute ischemic change Comparison ECG Date: from (09/17/2018) Change: the following changes noted (New onset afib, ST elevations present) Blood Pressure Blood Pressure Findings: Low blood pressure MDM Narrative This is a 45-year-old male who presents emergency department complaining of chest pain. The patient's EKG is concerning for a STEMI. Because of this a heart alert was immediately initiated. Patient was given a normal saline bolus here in the emergency department the patient was loaded with heparin as well as Brilinta. He was given morphine as well as Reglan here in the emergency department. [place] the patient was having allergic reaction to the Reglan therefore was given Benadryl. Repeat examination revealed improvement the patient symptoms. I did discuss the case with the stringing machine operator who did agree to take the patient to the cardiac [facility]. Case was also discussed with the hospitalist. Patient's troponin was found to be grossly elevated as well as his white blood cell count. Impression & Plan Chest pain, ST elevation myocardial infarction (STEMI) Critical Care Time I have personally spent greater than 30 minutes of critical care time in the direct management of this patient. This includes bedside care, interpretation of diagnostic studies, and testing, discussion with consultants, patient, and family members, and other required patient management activities. This 30 minutes is in excess of all separately billable procedures.` Discharge Plan Visit Data *Final* Discharge Date/Time: 02/19/20 18:25 Chief Complaint: Chest Pain Stated Complaint: cardiac alert ED Provider: Adonis Means Discharge Problem: Chest pain, ST elevation myocardial infarction (STEMI) Patient Disposition: Still a Patient Discharge Instructions Interventions: ED Discharge Assessment Last Done: 02/19/20 18:25 Discharge Problem: Chest pain Qualifiers: Chest pain type: unspecified Qualified Code(s): R07.9 - Chest pain, unspecified ST elevation myocardial infarction (STEMI) Qualifiers: Involved coronary artery: unspecified coronary artery Qualified Code(s): I21.3 - ST elevation (STEMI) myocardial infarction of unspecified site
[2020-02-19] MEDS ORDERED: ONDANSETRON INJ 2 MG/ML 2 ML VIAL IV PRN (19:16)
[2020-02-19] MEDS ORDERED: ICU PROTOCOL FOR HYPERGLYCEMIA PRN (19:16)
[2020-02-19] MEDS ORDERED: NITROGLYCERIN SL 0.4 MG/TAB TAB SL PRN (19:16)
[2020-02-19] MEDS ORDERED: ACETAMINOPHEN 325 MG TAB PO PRN (19:16)
[2020-02-19] MEDS ORDERED: SODIUM CHLORIDE 0.9% 1000ML 1,000 ML IV SCH (19:30)
--- NOTE | 2020-02-19 19:31 | History & Physical Report ---
Date of Service February 19, 2020 Assessment & Plan (1) Acute IL, inferior wall: Presentation consistent with inferior STEMI and concerning for very late stent thrombosis. Recommend proceeding with emergent cardiac catheterization and likely primary PCI. No apparent contraindications to procedure. Discussed risks, benefits, alternatives of procedure with patient and they are willing to proceed. Given IV heparin and ticagrelor 180 mg in the ED. Further recommendations pending findings of coronary angiography. History of Present Illness Primary Care Provider: NO PCP Mr. Parra is a 45-year-old man here with acute chest pain and ECG concerning for acute IL. Patient seen emergently in the ED after heart alert activated from ambulance in route. Past cardiac history remarkable for inferior IL in September 2018 treated with primary PCI with single drug-eluting stent to latemid RCA. Other medical issues include dyslipidemia, ongoing tobacco abuse and family history of premature CAD. Last seen by cardiology in September 2018 Chest pain began today approximately 1 hour prior to arrival while moving his motorcycle in his driveway. Describes substernal pain up into his throat with associated nausea, diaphoresis. Current pain more severe than prior episode and this time associated with nausea, diaphoresis. Chest pain at its worst 10 out of 10, down to 4 out of 10 at time of interview. Hemodynamically stable. EKG showed inferior ST elevations. Of note recently discontinued his prior cardiac medicines due to cost and not having health insurance. Social history: Works in the [employer]. Ongoing tobacco. Allergies Allergy/AdvReac Type Severity Reaction Status Date / Time No Known Allergies Allergy Verified 02/19/20 18:09 Home Medications Home Medications Medication Instructions Recorded Confirmed Type No Known Home Medications 02/13/19 02/19/20 History Past Med/Surg History Medical History Acute IL, inferior wall (Acute) Chest pain (Acute) Dyslipidemia Inguinal hernia, bilateral (Acute) Myocardial infarction, posterior wall (Acute) Non-sustained ventricular tachycardia Syncope (Acute) Surgical History History of hernia repair (Resolved 2012) Family History Other Myocardial infarction Social History Preferred Language: Maltese Communication Ability: Effective Visual Impairment: No Limitations Hearing Ability: Normal Beliefs That Will Affect Care: None marital status: Single Current Living Situation: Significant Other current occupational status: employed Feels Safe at Home: Yes Smoking Status: Current every day smoker Tobacco Type: cigarettes ; Cigarettes Per Day: 20 ; Hx Alcohol Use: Yes Alcohol type: hard liquor Hx Substance Use: No Review of Systems Review of Systems: All systems reviewed & are unremarkable except as noted in HPI & below Physical Exam Physical Exam: General: Uncomfortable HEENT: Sclerae anicteric, mucous membranes moist, poor dentition Lungs: Clear to auscultation bilaterally Cardiac: Bradycardic, regular, no murmurs Abdomen: Soft, nontender Extremities: Warm, well perfused, no edema. 2+ radial pulses Skin: No rashes or lesions. Neuro: Nonfocal Psych: Alert orient x3, normal affect and mood Results & Data Results & Data ([facility]) Vital Signs (Past 12 Hours) Vital Signs Temp Pulse Pulse Resp BP BP Pulse Ox 02/19/20 18:25 98.4 F 92 H 92 H 20 122/84 122/82 96 02/19/20 18:15 108 H 26 H 02/19/20 18:03 95 H 19 124/84 02/19/20 17:58 98.4 F 99 H 99 H 22 124/84 124/84 96 Code Status & VTE Plan VTE Prophylaxis Plan VTE Prophylaxis will be ordered: No PG Care Time/CCT Total # of Minutes Spent Total Time Spent with Patient: Total time spent is greater than 50% in coordination of care (as documented) at patient's floor/unit and/or counseling patient: Coding Level of Care Code 90924 Initial Inpt Care Lvl 3 Diagnoses Acute IL, inferior wall I21.19
--- NOTE | 2020-02-19 19:41 | Cardiac Catheterization ---
ACC Data: Writer Cardiac Status Clinical evaluation leading to the procedure CAD Presenation: STEMI Anginal Classification: CCS IV Heart Failure: No Cardiogenic Shock within 24 Hours: No Cardiac Arrest within 24 Hours: No Imaging Studies Past 6 Months: No Stress Studies Past 6 Months: No Diagnostic Physicians Name: Иван Brewster MD Closure Device Percutaneous Entry Location: Radial Closure Device: Radial Band Recommendations: PCI without planned CABG PCI Indication: Immediate PCI for STEMI First Noted: First EKG Lesion Segment Name: Mid RCA Culprit Artery: Yes Stenosis Prior to Rx (%): 100 Chronic Total Occlusion: No IVUS: No FFR: No Pre-Procedure DAPHNE Flow: 0 Previously Treated Lesion: No Lesion Complexity: Non-High/Non-C Lesion Length (mm): 25 Thrombus Present: Yes Bifurcation Lesion: No Guidewire Across Lesion: Stenosis Post-Procedure (%): 0 Post-Procedure DAPHNE Flow: 3 Devices(s) Deployed: Yes Yes Intraprocedure Events Significant Disection: No Perforation: No Cardiac Cath Procedure Full Procedure Date February 19, 2020 Pre-Procedure Diagnosis Pre-Procedure Diagnosis: STEMI AUC Score AUC Score: 9 Post-Procedure Diagnosis Post-Procedure Diagnosis: Severe CAD, Successful PCI and Normal Intracardiac Pressures Procedure(s) Performed Procedure(s) Performed: Coronary Angiography, Left Heart Cath and Drug Eluting Stent Acute Care Registered Nurse Иван Brewster MD Cyber Operator(s) Watkins Estimated Blood Loss Estimated Blood Loss: 15 Medication(s) Medication(s): Heparin, Lidocaine 1%, Nicardipine, Nitroglycerin and Versed Medication(s): Ticagrelor Summary of Findings Indication: STEMI/Heart Alert Access: 6 Fr right radial artery Catheters: IKari 3.5 guide Findings: LM -large caliber, angiographically normal LAD -medium caliber, mid segment luminal irregularities, distal vessel wraps around apex, medium caliber first diagonal without significant disease Circumflex -medium caliber, 50% mid segment disease, medium caliber OM 3 without significant disease. RCA -dominant, acute 100% occlusion at beginning of mid RCA, upstream/removed from prior stent LVEDP -14 -- PCI -- Antithrombotic therapy: Heparin, ticagrelor Procedure: RCA cannulated with IKari 3.5 guide BMW wire passed across lesion into distal vessel Mid RCA lesion predilated with 2.5 compliant balloon Dilated lesion stented with 3.0 x 26 mm Josesito drug-eluting stent overlapping proximal aspect of prior stent from 2018 Second BOYD placed more proximal extending into proximal segment 3.0 x 8 mm Pioneer Stents post-dilated with 3.25 noncompliant balloon IC vasodilators administered for spasm Post procedure DAPHNE 3 flow, stents well expanded with minimal residual stenosis and no apparent cardiac complications. Intraprocedure course complicated by bradycardia and transient hypotension post reperfusion which responded to atropine and IV fluid bolus. Arterial Closure: TR band Summary: 1. Inferior STEMI/acute 100% earlymid RCA occlusion 2. Moderate non-culprit vessel coronary artery disease -50% mid circumflex 3. Normal intracardiac filling pressure 4. Successful PCI of proximal to mid RCA with 2 overlapping drug-eluting stents (3.0 x 8, 3.0 x 26; postdilated with 3.25 NC). Recommendations: Admit to ICU for continued monitoring Loaded with ticagrelor 180 mg in cath Continue dual-antiplatelet therapy for at least 1 year, plan on extended DAPT with recurrent event of cardiac meds Trend troponins until peak, Check Echo Uptitrate beta-vale/ERNIE as BP allows High-dose statin Cardiac rehab Hemodynamics Rest Ao:: 103/54/76 Final Ao: 97/69/82 LV: 102/14 Recommendations Recommendations: PCI without planned CABG Specimens Specimens: None Radiation Exposure (mGy) 1575 Contrast (mls) 50 Fluids (cc crystalloids) Fluids (cc crystalloids): 500 Drains Drains: None Anesthesia Moderate Procedural Complication(s) None Disposition ICU I attest to the content of the Intraoperative Record and any orders documented therein. Any exceptions are noted below. [facility] Card Cath Procedure Codes Cardiac Catheterization Procedure 1: Cardiovascular Cath Procedures: 64615 Coronaries and LHC (+/-LV) Moderate Sedation Procedure 1: Sedation/Anesthesia: 52663 Mod Sedation by the same physician;Init15 Min Child Age 5 & Up Procedure 2: Sedation/Anesthesia: 72186 Mod Sedation by the same physician; Ea [id number] Minutes Stenting Procedure 1: Cardiovascular Stent Procedures: 59351 Perc transluminal revascularization of acute sub/total occl, aMI PG Care Time/CCT Total # of Minutes Spent Total Time Spent with Patient: Total time spent is greater than 50% in coordination of care (as documented) at patient's floor/unit and/or counseling patient:
--- NOTE | 2020-02-19 19:53 | Critical Care Consultation ---
Date of Consultation February 19, 2020 Assessment & Plan (1) ST elevation myocardial infarction (STEMI): Reason Critically Ill: 45-year-old male presents to the ICU following ST elevation ID with successful stenting with BOYD x2 placed in the RCA Neuro - CAM ICU: Negative Cardiac - STEMI/HLD/CADpatient presented with chest pain and inferior ST elevation on EKG, heart alert was initiated and patient taken to [facility] -Now status post successful PCI of culprit lesion RCA with 2 overlapping BOYD -Post-cath the patient is without chest pain and significant improvement in ST elevation on EKG -Patient received loading dose of Brilinta, will continue dual antiplatelet therapy per cardiology -Continue BB, ERNIE, statin -Trend troponins, will follow-up lipid panel -Continue to monitor in ICU overnight with telemetry Respiratory - Currently maintaining sats on room air Current smoker, will need counseling on cessation GI - Heart healthy diet RENAL/LYTES - BMP pending, monitor creatinine and maximize electrolytes - Strict I's and O's ENDO - No history diabetes or thyroid disease TSH and hemoglobin A1c pending ICU hyperglycemic protocol HEME - Monitor H&H with routine CBCs ID - No indication for infectious process at this time LINES/IV ACCESS - Peripheral IVs DVT PROPHYLAXIS - SCDs, heparin Thank you for allowing us to participate in the care of this patient. Please refer to my attending physician's documentation for any further recommendations. (2) Current smoker: (3) Dyslipidemia: (4) CAD (coronary artery disease): (5) Admitted to intensive care unit: History of Present Illness Attending Physician: Иван Brewster MD History of Present Illness Mr. Parra is a 45-year-old male with past medical history of continued tobacco abuse, dyslipidemia, and CAD with prior ID in September where he received a single BOYD to the mid RCA. Since then patient has continued to smoke and has been noncompliant with medications due to cost and access to insurance. He presented to the ED via EMS today with chest pain that started approximately 1 hour to arrival, with associated nausea diaphoresis and radiation to the neck. Chest pain was initially reported 10 out of 10 and EKG showed inferior ST elevations and heart alert was initiated. Patient was taken to the [facility] where he received successful stent x2 to the culprit lesion RCA with immediate relief of chest pain. Patient then transported to ICU post cath. On arrival to the ICU the patient appears comfortable and is alert and oriented. Repeat EKG shows significant improvement ST elevation. Patient denies recent illness, syncope, dizziness, shortness of breath, palpitations, chest pain, abdominal pain, nausea or vomiting. We will continue to monitor overnight and likely transfer to floor in the a.m. Patient without acute events. Allergies Allergy/AdvReac Type Severity Reaction Status Date / Time No Known Allergies Allergy Verified 02/19/20 18:09 Home Medications Home Medications Medication Instructions Recorded Confirmed Type No Known Home Medications 02/13/19 02/19/20 History Patient History Medical History (Updated 02/20/20 @ 09:26 by Jeffery Dumas MD) Acute ID, inferior wall (Acute) Dyslipidemia Inguinal hernia, bilateral (Acute) Myocardial infarction, posterior wall (Acute) Non-sustained ventricular tachycardia Syncope (Acute) Surgical History (Updated 02/19/20 @ 19:45 by MARCIN Aiken) History of hernia repair (Resolved 2012) Stented coronary artery Family History Other Myocardial infarction Social History Preferred Language: Slovak Communication Ability: Effective Visual Impairment: No Limitations Hearing Ability: Normal Caul Fat Puller Required: No Beliefs That Will Affect Care: None marital status: Single Current Living Situation: Alone current occupational status: employed Other Information That Helps Us Care for You: No Feels Safe at Home: Yes Safety Concerns: Feels Safe At This Time Smoking Status: Current every day smoker Tobacco Type: cigarettes ; Cigarettes Per Day: 20 ; Do You Dip or Chew Tobacco: No ; Second Hand Exposure: No ; Tobacco Cessation Education Requested by Patient: No Hx Alcohol Use: Yes Alcohol type: wine Hx Substance Use: Yes substance use type: marijuana Last Used Substance: Days (ago) Review of Systems Review of Systems: All systems reviewed & are unremarkable except as noted in HPI & below Physical Exam Constitutional: cooperative and comfortable Eyes: PERRL, conjunctivae normal, anicteric sclerae ENMT: external ear and nose normal, oropharynx normal Neck: trachea midline, no thyromegaly Respiratory: normal respiratory effort, lungs clear to auscultation Cardiovascular: RRR, no murmur, no edema Heart Sounds: normal S1 and normal S2 Vessels: no JVD Extremities: normal capillary refill; no edema Gastrointestinal (Abdomen): normal bowel sounds, soft, nontender, no hepatosplenomegaly Skin: no rashes, warm and dry Neurologic: PERRL, EOMI, accommodation nl, no face palsy, no dysarthria Psychiatric: A+Ox3, euthymic affect Results & Data Results & Data ([facility]) Vital Signs (Past 12 Hours) Vital Signs Temp Pulse Pulse Resp BP BP Pulse Ox 02/19/20 18:25 36.9 C 92 H 92 H 20 122/84 122/82 96 02/19/20 18:15 108 H 26 H 02/19/20 18:03 95 H 19 124/84 02/19/20 17:58 36.9 C 99 H 99 H 22 124/84 124/84 96 Coding Level of Care Code 15343 Office/OBS Consult Lvl [address] elevation myocardial infarction (STEMI) I21.3 Involved coronary artery: unspecified coronary artery Current smoker F17.200 Dyslipidemia E78.5 CAD (coronary artery disease) I25.10 Admitted to intensive care unit Z78.9 (1) ST elevation myocardial infarction (STEMI) Involved coronary artery: unspecified coronary artery Qualified Code(s): I21.3 - ST elevation (STEMI) myocardial infarction of unspecified site
[2020-02-19 20:04] LABS: Basophils # (auto) 0.04 K/uL (0-0.2); Basophils % (auto) 0.2 %; Eosinophils % (auto) 0.6 %; Hemoglobin 13.9 g/dL (14.0-18.0); Immature Granulocytes # (auto) 0.11 K/uL (0.00-0.02); Immature Granulocytes % (auto) 0.6 %; Lymphocytes # (auto) 2.44 K/uL (1.2-3.4); Lymphocytes % (auto) 14.2 %; Mean Corpuscular Hemoglobin 30.2 pg (25-34); Mean Corpuscular Hgb Conc 33.9 g/dL (32-36); Mean Corpuscular Volume 89.1 fL (80-100); Mean Platelet Volume 9.2 fL (7.4-10.4); Monocytes # (auto) 0.95 K/uL (0.11-0.59); Monocytes % (auto) 5.5 %; Neutrophils # (auto) 13.54 K/uL (1.4-6.5); Neutrophils % (auto) 78.9 %; Platelet Count 249 K/uL (130-400); RDW Coefficient of Variation 14.7 % (11.5-14.5); RDW Standard Deviation 48.2 fL (36.4-46.3); White Blood Count 17.18 K/uL (4.8-10.8)
[2020-02-19 20:21] LABS: Albumin Level 3.4 gm/dl (3.4-5.0); BUN Creatinine Ratio 13.2 (10-20); Calcium 8.3 mg/dl (8.5-10.1); Creatinine Clr Calc Pharmacy 110.7 ml/min; Est GFR (African American) 116.1; Est GFR (Non-African American) 100.2; Potassium 3.8 mmol/L (3.5-5.1)
[2020-02-19 20:25] LABS: INR 1.1 (0.9-1.1); Partial Thromboplastin Ratio > 5.0; Prothrombin Time 11.9 Seconds (9.0-12.0)
[2020-02-19 20:29] LABS: Partial Thromboplastin Time > 139.0 Seconds (21.0-31.0)
--- NOTE | 2020-02-19 20:31 | History & Physical Report ---
Date of Service February 19, 2020 Assessment & Plan (1) ST elevation myocardial infarction (STEMI): Pt is a 45yo gentleman with a PMHx significant for prior inferior NJ with stent placement in 2018, HLD and tobacco abuse who presents with inferior STEMI once more. Inferior STEMI -pt with chest pain earlier today while at home waiting on a friend after moving a motorcycle -EKG with noted ST elevation in inferior leads -Troponins elevated to 45, CkMB 128.7 -Echo pending, hga1c and lipid panel pending -s/p PCI with noted 100% occlusion of early to mid RCA once more. 1 new stent placed, overlapping previous -continue dual antiplatelet therapy with aspirin and Ticagrelor 90mg BID -continue metoprolol 12.5mg BID and lisinopril 5mg daily--keeping an eye on BP, titrate up doses. -continue high dose atorvastatin 80mg -continue nitroglycerin 0.5mg SL PRN for pain -continue zofran 4mg q6h PRN for nausea -continue to monitor hemodynamic stability given inferior NJ HLD -lipid panel pending -continue high dose lipitor 80mg Tobacco abuse -consider smoking cessation FEN/GI: Heart healthy diet; NSS +K@100 DVT prophylaxis: Lovenox SQ, also on dual antiplatelet therapy above CODE STATUS: Full Dispo: ICU for monitoring post-PCI Admission and Anticipated Discharge Date Admission Date: February 19, 2020 History of Present Illness Primary Care Provider: NO PCP Pt is a 45yo gentleman with a PMHx significant for prior inferior NJ with stent placement in 2018, HLD and tobacco abuse who presents with inferior STEMI once more. States he was at home earlier today getting ready for a friend to come over. In doing so, he moved a motorcycle in his driveway and started having chest pain soon after associated with a "warm feeling" and numbness in his arm that reminded him of his previous NJ. Was also SOB. Decided to call 911 after that. Allergies Allergy/AdvReac Type Severity Reaction Status Date / Time No Known Allergies Allergy Verified 02/19/20 18:09 Home Medications Home Medications Medication Instructions Recorded Confirmed Type No Known Home Medications 02/13/19 02/19/20 History Past Med/Surg History Medical History (Updated 02/20/20 @ 09:26 by Jeffery Dumas MD) Acute NJ, inferior wall (Acute) Dyslipidemia Inguinal hernia, bilateral (Acute) Myocardial infarction, posterior wall (Acute) Non-sustained ventricular tachycardia Syncope (Acute) Surgical History (Updated 02/19/20 @ 19:45 by MARCIN Aiken) History of hernia repair (Resolved 2012) Stented coronary artery Family History Other Myocardial infarction Social History Preferred Language: Slovenian Communication Ability: Effective Visual Impairment: No Limitations Hearing Ability: Normal Concrete Batching Plant Operator Required: No Beliefs That Will Affect Care: None marital status: Single Current Living Situation: Alone current occupational status: employed Other Information That Helps Us Care for You: No Feels Safe at Home: Yes Safety Concerns: Feels Safe At This Time Smoking Status: Current every day smoker Tobacco Type: cigarettes ; Cigarettes Per Day: 20 ; Do You Dip or Chew Tobacco: No ; Second Hand Exposure: No ; Tobacco Cessation Education Requested by Patient: No Hx Alcohol Use: Yes Alcohol type: wine Hx Substance Use: Yes substance use type: marijuana Last Used Substance: Days (ago) Review of Systems Constitutional: no fever, no chills and no sweats Eyes: no worsening vision Ear, Nose, Mouth, Throat: no nasal congestion and no sore throat Respiratory: + dyspnea; no cough Cardiovascular: + chest pain and + dyspnea; no palpitations and no lightheadedness Gastrointestinal: no nausea, no vomiting, no constipation and no diarrhea/loose stools Neurologic: + numbness; no tingling and no headache(s) Physical Exam Physical Exam: General: Alert, oriented. Stting up in bed, some difficulty speaking Skin: No noted rashes or bruises Psych: Appropriate mood and affect Neuro: No gross deficits HEENT: NC/AT, PERRLA, EOMI, oropharynx moist. Chest: Nontender to palpation. CV: RRR, Normal s1, s2. No murmurs appreciated Resp: Breath sounds clear bilaterally, no increased effort of breathing. No c rackles/rhonchi/rales. Abdomen: Soft, nontender, nondistended. No guarding. No organomegaly appreciated. Extremities: No edema in lower extremities bilaterally. Results & Data Results & Data ([facility]) Vital Signs (Past 12 Hours) Vital Signs Temp Pulse Pulse Resp BP BP Pulse Ox 02/19/20 18:25 36.9 C 92 H 92 H 20 122/84 122/82 96 02/19/20 18:15 108 H 26 H 02/19/20 18:03 95 H 19 124/84 02/19/20 17:58 36.9 C 99 H 99 H 22 124/84 124/84 96 Code Status & VTE Plan VTE Prophylaxis Plan VTE Prophylaxis will be ordered: No Critical Care Time Critical Care Time: Yes Total Critical Care Time: 40 Total critical care time was 40 minutes Supervising Physician Co-Signing Physician Notes Attending addendum: I have physically seen this patient, have supervised the medical residents activities, and agree with the H&P unless as otherwise noted. Assessment and Plan: STEMI/heart alert/emergent cardiac catheterization- Admitted to the ICU post intervention. Continue postprocedure orders per interventional cardiology Dr. Brewster. Routine laboratories in a.m. Change IV fluids from normal saline at 150 mL's per hour to normal saline with KCl 20 mEq at 100 mils per hour. Routine laboratories for a.m. Hyperlipidemia- Fasting lipid panel in a.m. Continue high-dose statin Lipitor 80 mg daily Tobacco abuse- Cessation counseling. NicoDerm patch. Consult keyliner service. Remainder of orders and notations as noted. Resident Activity Tracking Resident Involvement: Resident Care Provided Care Provided: Adult Hospital Medicine (1) ST elevation myocardial infarction (STEMI) Involved coronary artery: unspecified coronary artery Qualified Code(s): I21.3 - ST elevation (STEMI) myocardial infarction of unspecified site
[2020-02-19 20:36] LABS: Bilirubin,Total 0.3 mg/dl (0.2-1); Creatine Kinase MB 128.7 ng/ml (0.5-3.6); Globulin 3.5 gm/dl (2.5-4.0); Thyroid Stimulating Hormone 2.05 uIu/ml (0.300-4.500); Total Protein 6.9 gm/dl (6.4-8.2)
[2020-02-19] MEDS ORDERED: POTASSIUM CHLORIDE 20 MEQ TABCR PO STA (20:40)
[2020-02-19] MEDS ORDERED: METOPROLOL TARTRATE 25 MG TAB PO SCH (21:00)
[2020-02-19 21:13] LABS: Troponin I 45.3 ng/ml (0-0.045)
[2020-02-19] MEDS: NSS + 20MEQ KCL 20 MEQ/1,000 ML BAG IV SCH (22:16)
[2020-02-20 01:24] LABS: Basophils # (auto) 0.02 K/uL (0-0.2); Basophils % (auto) 0.2 %; Eosinophils # (auto) 0.15 K/uL (0-0.5); Eosinophils % (auto) 1.2 %; Hematocrit (blood only) 39.1 % (42-52); Hemoglobin 13.2 g/dL (14.0-18.0); Immature Granulocytes # (auto) 0.05 K/uL (0.00-0.02); Immature Granulocytes % (auto) 0.4 %; Lymphocytes % (auto) 28.9 %; Mean Corpuscular Hemoglobin 30.2 pg (25-34); Mean Corpuscular Hgb Conc 33.8 g/dL (32-36); Mean Corpuscular Volume 89.5 fL (80-100); Mean Platelet Volume 9.4 fL (7.4-10.4); Monocytes # (auto) 0.88 K/uL (0.11-0.59); Monocytes % (auto) 7.3 %; Neutrophils # (auto) 7.52 K/uL (1.4-6.5); Platelet Count 259 K/uL (130-400); RDW Standard Deviation 48.7 fL (36.4-46.3); Red Blood Count 4.37 M/uL (4.7-6.1); White Blood Count 12.12 K/uL (4.8-10.8)
[2020-02-20 01:34] LABS: Partial Thromboplastin Ratio 0.9; Partial Thromboplastin Time 25.4 Seconds (21.0-31.0); Prothrombin Time 10.9 Seconds (9.0-12.0)
[2020-02-20 02:04] LABS: Alanine Aminotransferase 64 U/L (12-78); Albumin Level 3.1 gm/dl (3.4-5.0); Aspartate Aminotransferase 305 U/L (15-37); BUN Creatinine Ratio 18.3 (10-20); Blood Urea Nitrogen 15 mg/dl (7-18); Calcium 8.7 mg/dl (8.5-10.1); Carbon Dioxide 23 mmol/L (21-32); Chloride 114 mmol/L (98-107); Creatinine Clr Calc Pharmacy 112.4 ml/min; Est GFR (African American) 125.5; Est GFR (Non-African American) 108.3; Glucose 114 mg/dl (70-99); Lipase 528 U/L (73-393); Sodium 136 mmol/L (136-145)
[2020-02-20 02:18] LABS: Alkaline Phosphatase 84 U/L (45-117); Bilirubin Direct < 0.1 mg/dl (0-0.2); Bilirubin,Total 0.2 mg/dl (0.2-1); Chol HDL Ratio 11; Cholesterol 244 mg/dl (0-200); Creatine Kinase 2770 U/L (39-308); HDL Cholesterol 23 mg/dl; LDL Cholesterol Calculated 165 mg/dl; Total Protein 6.3 gm/dl (6.4-8.2); Triglycerides 279 mg/dl (0-150); VLDL Cholesterol 56 mg/dl
[2020-02-20] MEDS ORDERED: SODIUM CHLORIDE 0.9% 1000ML 500 ML IV ONE ×2 (03:03→06:11)
[2020-02-20] MEDS: TICAGRELOR 90 MG TAB PO SCH ×3 (06:18→20:53)
[2020-02-20] MEDS: ENOXAPARIN INJ 40 MG/0.4 ML SYR SQ SCH (07:40)
[2020-02-20] MEDS: ATORVASTATIN 40 MG TAB PO SCH (07:40)
[2020-02-20] MEDS: ASPIRIN 81 MG ECTAB PO SCH (07:40)
[2020-02-20] MEDS ORDERED: SODIUM CHLORIDE 0.9% 1000ML 250 ML IV ONE (08:06)
[2020-02-20] MEDS: NSS + 20MEQ KCL 20 MEQ/1,000 ML BAG IV SCH (08:08)
--- NOTE | 2020-02-20 08:11 | Critical Care Progress Note ---
Date of Service February 20, 2020 Assessment & Plan (1) ST elevation myocardial infarction (STEMI): --STEMI Inferior wall [place] status post 2 stents in RCA Continue with statin. Beta-vale and ERNIE are on hold as the patient is hypotensive We will resume low-dose beta-vale once and the map is better controlled. Continue with [facility] on board, follow recommendations --Hypotension Patient has mild crackles bilateral lower lobes, chest x-ray is clear Patient is saturating 98% on room air We will give him bolus of 500 mL normal saline and see how he does. There is no indication for vasopressor support for the time being. Ejection fraction 45 to 50%. With some RV involvement with hypokinesis of the apex. --Active smoker Greater than [id number] smoking history With clubbing of the fingers Advised to quit, offered help to help quitting --Prophylaxis Lovenox Patient tolerating diet I have personally spent 35 minutes of critical care time in the direct management of this patient. This is a life/limb threatening event. This includes time spent evaluating patient, direct bedside care, chart review, placing orders, interpretation of diagnostic studies, discussion with consultants, patient, and family members, as well as other required patient management activities. This time is exclusive of all separately billable procedures, and teaching time and separate from and in addition to any other critical care service time. Please note the above document was generated using voice recognition software. It may contain grammatical, syntax or spelling errors. (2) Admitted to intensive care unit: (3) CAD (coronary artery disease): (4) Current smoker: (5) Hypotension: Admission and Anticipated Discharge Date Admission Date: February 19, 2020 Subjective Patient seen and examined at bedside. No acute distress, no adverse events overnight. Patient denies any dizziness, no headache, no nausea or vomiting. No chest pain, no shortness of breath. Review of Systems Review of Systems: All systems reviewed & are unremarkable except as noted in HPI & below Physical Exam Physical Exam: Constitutional: No acute distress HEENT: EOMI, PERRLA Respiratory system: Decreased air entry bilaterally, no wheeze, no rhonchi, positive crackles bilateral lower lobes per CVS: S1-S2 positive, no murmurs or gallops Abdomen: Soft, nontender, nondistended, positive bowel sounds x4 Extremities: +2 pulses bilaterally radialis/ dorsalis pedis, no cyanosis, no edema, positive clubbing Neuro: Awake alert oriented x3 Psych: Normal mood and affect G/U: No [place] Skin: no rashes, warm and dry Lymphatic: no cervical or axillary lymphadenopathy Results & Data Results & Data ([facility]) Vital Signs (Past 12 Hours) Vital Signs Temp Pulse Resp BP Pulse Ox 02/20/20 04:00 94 H 17 02/20/20 03:57 77 23 84/46 L 98 02/20/20 03:45 77 28 H 98 02/20/20 03:42 36.7 C 95 H 24 103/69 99 02/20/20 03:30 82 23 97 02/20/20 03:27 78 27 H 89/58 L 97 02/20/20 03:15 95 H 32 H 77 L 02/20/20 03:12 81 27 H 95/75 L 97 02/20/20 03:00 66 23 96 02/20/20 02:57 84 28 H 86/52 L 97 02/20/20 02:56 79 19 80/45 L 96 02/20/20 02:53 82 23 74/40 L 97 02/20/20 02:47 36.8 C 84 24 50/44 L 96 02/20/20 02:45 73 23 96 02/20/20 02:30 77 22 95 02/20/20 02:15 79 21 95 02/20/20 02:13 73 23 74/41 L 95 02/20/20 02:00 74 25 H 95 02/20/20 01:57 75 25 H 91/66 L 96 02/20/20 01:45 78 26 H 95 02/20/20 01:42 36.9 C 71 21 87/53 L 96 02/20/20 01:30 84 22 95 02/20/20 01:27 74 20 87/61 L 95 02/20/20 01:15 87 27 H 95 02/20/20 01:00 77 27 H 94 02/20/20 00:57 74 26 H 94/60 L 95 02/20/20 00:45 81 28 H 94 02/20/20 00:42 83 24 104/77 96 02/20/20 00:30 82 25 H 94 02/20/20 00:27 84 23 98/63 L 95 02/20/20 00:15 88 25 H 95 02/20/20 00:12 85 22 105/67 94 02/20/20 00:10 36.7 C 02/20/20 00:00 88 26 H 94 02/19/20 23:57 90 28 H 99/61 L 94 02/19/20 23:45 86 24 95 02/19/20 23:42 37 C 108 H 19 99/59 L 95 02/19/20 23:30 79 24 96 02/19/20 23:27 87 27 H 103/61 95 02/19/20 23:15 92 H 26 H 95 02/19/20 23:12 93 H 24 99/64 L 95 02/19/20 23:00 96 H 28 H 95 02/19/20 22:57 85 28 H 106/71 95 02/19/20 22:45 93 H 23 101/67 96 02/19/20 22:42 91 H 24 101/67 96 02/19/20 22:30 95 H 26 H 96 02/19/20 22:27 36.9 C 95 H 25 H 106/73 96 02/19/20 22:15 94 H 26 H 96 02/19/20 22:12 101 H 21 100/70 96 02/19/20 22:00 99 H 28 H 98 02/19/20 21:57 103 H 28 H 117/81 95 02/19/20 21:45 107 H 29 H 95 02/19/20 21:42 114 H 30 H 115/71 95 02/19/20 21:30 105 H 28 H 94 02/19/20 21:27 100 H 26 H 117/80 93 02/19/20 21:15 106 H 28 H 95 02/19/20 21:12 36.9 C 96 H 27 H 132/76 95 02/19/20 21:00 108 H 28 H 91 02/19/20 20:58 111 H 27 H 109/82 89 L 02/19/20 20:45 114 H 27 H 95 02/19/20 20:42 99 H 24 118/77 96 02/19/20 20:30 105 H 24 95 02/19/20 20:27 37 C 125 H 26 H 107/78 80 L 02/19/20 20:15 108 H 26 H 94 02/19/20 20:13 112 H 29 H 111/67 92 02/20/20 01:10 04/12/20 01:10 Coding Level of Care Code Critical Care 1st 30-[address] elevation myocardial infarction (STEMI) I21.3 Involved coronary artery: unspecified coronary artery Admitted to intensive care unit Z78.9 CAD (coronary artery disease) I25.10 Current smoker F17.200 Hypotension I95.9 Time Spent (min) 35 (1) ST elevation myocardial infarction (STEMI) Involved coronary artery: unspecified coronary artery Qualified Code(s): I2 1.3 - ST elevation (STEMI) myocardial infarction of unspecified site
[2020-02-20] MEDS: SODIUM CHLORIDE 0.9% 500 ML IV SCH ×2 (08:16→14:30)
[2020-02-20] MEDS ORDERED: lisinopriL 5 MG TAB PO SCH (09:00)
--- NOTE | 2020-02-20 09:04 | XCELERA ---
[id number] [id number]
--- NOTE | 2020-02-20 09:22 | Cardiology Progress Note ---
Date of Service February 20, 2020 Assessment & Plan (1) Acute ME, inferior wall: Patient asymptomatic, benign telemetry, hemodynamics reasonable (mild/asymptomatic hypotension). Recommendations per Dr. Brewster: -Dual antiplatelet therapy for at least 1 year (given recurrent events) -Continue to trend troponins -Titrate beta-vale/ERNIE as BP allows -High-dose statin -Cardiac rehab May not be able to titrate ERNIE inhibitor given hypotension, agree with IV fluid loading. Although his right ventricle was nondilated and I initially read his systolic function as normal, upon closer scrutiny he does have some RV involvement with hypokinesis of the apex. If BP allows after fluid loading, would preferentially titrate beta-vlae to reduce tendency to tachycardia (current heart rate in the 90s). (2) Current smoker: Patient counseled on smoking cessation (he had a prior infarct but continued to smoke). (3) CAD (coronary artery disease): No remaining occlusive disease post stenting (50% circumflex, otherwise luminal irregularities) (4) Dyslipidemia: Admission and Anticipated Discharge Date Admission Date: February 19, 2020 Subjective Uneventful night. No chest pain since his intervention last evening (2 drug- eluting stents proximal to mid RCA). Patient had no complaints. Hemodynamics with mild asymptomatic hypotension, heart rate 80-90 bpm range. Telemetry benign. Physical Exam Physical Exam: No distress. Skin: no ecchymoses or generalized lesions. HEENT: unremarkable. Neck: no JVD or carotid bruits. Lungs clear. Cardiac: regular rhythm and no murmur or gallop. Abdomen benign. Extremities: Right wrist without hematoma, radial pulse intact, good capillary refill. Lower extremities with no edema, pulses brisk. Neurologic: normal affect, nonfocal. Results & Data ([facility]) Laboratory Results 02/19/20 02/20/20 02/20/20 19:57 01:10 01:10 Hgb 13.2 L Creatinine Troponin I 45.300 H* 123.000 H* 02/20/20 01:10 Hgb Creatinine 0.82 Troponin I Diagnostic Findings ECG showed sinus rhythm with sinus arrhythmia. Evolving inferior infarct (Q waves present, ST elevation resolved). Compared with prior ECGs, ST elevation no longer present. Echocardiogram showed EF 45 to 50% with wall motion abnormalities consistent with inferior infarct. No significant valvular abnormalities, RV systolic pressure was normal, normal IVC diameter. Compared with 2018 study, mild decline in systolic function and previously noted inferior wall motion abnormalities are now more pronounced/extensive. PG Care Time/CCT Total # of Minutes Spent Total Time Spent with Patient: Total time spent is greater than 50% in coordination of care (as documented) at patient's floor/unit and/or counseling patient: Coding Level of Care Code 14831 Subseq Hosp Care Lvl 3 Diagnoses Acute ME, inferior wall I21.19 Current smoker F17.200 CAD (coronary artery disease) I25.10 Dyslipidemia E78.5
--- NOTE | 2020-02-20 10:03 | Electrocardiogram Report ---
Test Reason : Blood Pressure : / mmHG Vent. Rate : 083 BPM Atrial Rate : 076 BPM P-R Int : 000 ms QRS Dur : 110 ms QT Int : 360 ms P-R-T Axes : 000 082 099 degrees QTc Int : 423 ms Atrial fibrillation with a competing junctional pacemaker Inferior-posterior infarct , new ACUTE CO / STEMI Consider right ventricular involvement in acute inferior infarct Abnormal ECG When compared with ECG of 17-SEP-2018 18:47, Atrial fibrillation has replaced Sinus rhythm Acute Inferior-posterior infarct is now Present Confirmed by Jeffery Dumas ([id number]) on 02/20/2020 10:02:47 AM Referred By: REFERRED SELF Confirmed By:Jeffery Dumas
--- NOTE | 2020-02-20 10:05 | Electrocardiogram Report ---
Test Reason : Blood Pressure : / mmHG Vent. Rate : 108 BPM Atrial Rate : 108 BPM P-R Int : 152 ms QRS Dur : 096 ms QT Int : 316 ms P-R-T Axes : 040 071 088 degrees QTc Int : [address] elevation consider inferior injury or acute infarct ACUTE ND / STEMI Consider right ventricular involvement in acute inferior infarct Abnormal ECG When compared with ECG of 19-FEB-2020 18:04, Sinus rhythm has replaced Atrial fibrillation ST less elevated in Inferior leads Confirmed by Jeffery Dumas ([id number]) on 02/20/2020 10:04:54 AM Referred By: REFERRED SELF Confirmed By:Jeffery Dumas
--- NOTE | 2020-02-20 10:12 | Electrocardiogram Report ---
Test Reason : Blood Pressure : / mmHG Vent. Rate : 077 BPM Atrial Rate : 077 BPM P-R Int : 146 ms QRS Dur : 082 ms QT Int : 354 ms P-R-T Axes : 034 052 051 degrees QTc Int : 400 ms Sinus rhythm with marked sinus arrhythmia Recent Inferior infarct Abnormal ECG When compared with ECG of 19-FEB-2020 19:32, ST elevation in Inferior leads no longer present Confirmed by Jeffery Dumas ([id number]) on 02/20/2020 10:11:50 AM Referred By: REFERRED SELF Confirmed By:Jeffery Dumas
[2020-02-20] MEDS ORDERED: LORazepam 0.5 MG TAB PO STA (22:39)
--- NOTE | 2020-02-20 23:02 | Hospitalist Progress Note ---
Date of Service February 20, 2020 Assessment & Plan (1) ST elevation myocardial infarction (STEMI): --STEMI Inferior wall [place] status post 2 stents in RCA Continue with statin. Beta-vale and ERNIE are on hold as the patient is hypotensive. Patient has had moments of low BP. May not be able to titrate ERNIE inhibitor given hypotension, agree with IV fluid loading. Continue with [facility] on board, follow recommendations --Hypotension Patient has mild crackles bilateral lower lobes, chest x-ray is clear Patient is saturating 98% on room air continue IVF. There is no indication for vasopressor support for the time being. Ejection fraction 45 to 50%. With some RV involvement with hypokinesis of the apex. --Active smoker Greater than [id number]-crne smoking history With clubbing of the fingers Patient has been advised to quit wi cardio and admitting provider. --Prophylaxis Lovenox Admission and Anticipated Discharge Date Admission Date: February 19, 2020 Subjective Patirent is lying in bed resting comfortably. He briefly awakens and states he has no complaints currently. Review of Systems Review of Systems: All systems reviewed & are unremarkable except as noted in HPI & below Physical Exam Physical Exam: General: Alert, oriented. Stting up in bed, some difficulty speaking Skin: No noted rashes or bruises Psych: Appropriate mood and affect Neuro: No gross deficits Chest: Nontender to palpation. CV: RRR, Normal s1, s2. No murmurs appreciated Resp: Breath sounds clear bilaterally, no increased effort of breathing. No crackles/rhonchi/rales. Abdomen: Soft, nontender, nondistended. No guarding. No organomegaly appreciated. Extremities: No edema in lower extremities bilaterally. Results & Data Results & Data ([facility]) Vital Signs (Past 12 Hours) Vital Signs Temp Pulse Resp BP Pulse Ox 02/20/20 21:00 75 31 H 93 02/20/20 20:45 36.8 C 80 22 104/58 L 02/20/20 20:00 81 21 02/20/20 19:42 36.8 C 104/57 L 02/20/20 19:00 81 27 H 02/20/20 18:45 66 26 H 02/20/20 18:30 74 24 02/20/20 18:15 74 32 H 02/20/20 18:00 73 22 02/20/20 17:45 74 26 H 02/20/20 17:30 77 26 H 02/20/20 17:15 68 26 H 02/20/20 17:00 63 8 L 02/20/20 16:45 65 31 H 02/20/20 16:43 82 20 02/20/20 16:15 67 9 L 02/20/20 16:00 59 L 23 02/20/20 15:45 82 19 02/20/20 15:30 67 27 H 02/20/20 15:15 67 30 H 02/20/20 15:01 91 H 27 H 02/20/20 14:45 81 29 H 02/20/20 14:34 65 23 94/61 L 02/20/20 14:33 77 27 H 02/20/20 14:15 81 18 02/20/20 14:00 66 24 02/20/20 13:45 68 26 H 02/20/20 13:30 76 24 02/20/20 13:15 70 28 H 02/20/20 13:00 75 28 H 02/20/20 12:45 72 28 H 02/20/20 12:33 83 26 H 02/20/20 12:19 73 26 H 96/69 L 95 02/20/20 12:15 76 31 H 02/20/20 12:13 78 17 102/66 96 02/20/20 12:00 69 29 H 95 02/20/20 11:58 68 26 H 86/64 L 96 02/20/20 11:45 69 26 H 97 02/20/20 11:44 68 28 H 97 02/20/20 11:43 68 24 108/63 97 02/20/20 11:34 70 02/20/20 11:30 85 21 02/20/20 11:28 88 25 H 98/59 L 97 02/20/20 11:15 100 H 19 99 02/20/20 11:13 79 25 H 90/51 L 99 PG Care Time/CCT Total # of Minutes Spent Total Time Spent with Patient: Total time spent is greater than 50% in coordination of care (as documented) at patient's floor/unit and/or counseling patient: Coding Level of Care Code 15913 Subseq Hosp Care Lvl [address] elevation myocardial infarction (STEMI) I21.3 Involved coronary artery: unspecified coronary artery (1) ST elevation myocardial infarction (STEMI) Involved coronary artery: unspecified coronary artery Qualified Code(s): I21.3 - ST elevation (STEMI) myocardial infarction of unspecified site
--- NOTE | 2020-02-20 23:12 | Billing Data ---
Date of Service February 20, 2020 Coding Level of Care Code Critical Care 1st -74 mins
[2020-02-21] MEDS: SODIUM CHLORIDE 0.9% 1,000 ML IV SCH ×2 (00:36→09:00)
[2020-02-21] MEDS: SODIUM CHLORIDE 0.9% 500 ML IV SCH (00:45)
[2020-02-21 03:42] LABS: BUN Creatinine Ratio 13.3 (10-20); Calcium 8.1 mg/dl (8.5-10.1); Creatinine Clr Calc Pharmacy 143.3 ml/min; Est GFR (African American) 132.4; Est GFR (Non-African American) 114.3; Magnesium 1.9 mg/dl (1.8-2.4); Phosphorus 2.1 mg/dl (2.5-4.9); Potassium 3.9 mmol/L (3.5-5.1)
[2020-02-21] MEDS ORDERED: POTASSIUM CHLORIDE 20 MEQ TABCR PO STA (04:00)
[2020-02-21] MEDS ORDERED: MAGNESIUM SULFATE / D5W 1 GM/100 ML BAG IV ONE (04:00)
[2020-02-21 06:35] LABS: Estimated Average Glucose 123 mg/dl; Hemoglobin A1C 5.9 % (4.5-5.6)
[2020-02-21 06:59] LABS: Appearance Urine Clear (Clear); Bilirubin Urine Negative (Negative); Blood Urine Negative (Negative); Color Urine Yellow; Glucose Urine UA Negative (Negative); Ketones Urine 1+ (Negative); Leukocyte Esterase Urine Negative (Negative); Nitrite Urine Negative (Negative); Protein Urine Negative (Negative); Specific Gravity Urine 1.015 (1.000-1.030); Urobilinogen Urine Negative (Negative)
[2020-02-21] MEDS: ENOXAPARIN INJ 40 MG/0.4 ML SYR SQ SCH (07:26)
[2020-02-21] MEDS: ASPIRIN 81 MG ECTAB PO SCH (07:26)
[2020-02-21] MEDS: ATORVASTATIN 40 MG TAB PO SCH (07:26)
[2020-02-21] MEDS: TICAGRELOR 90 MG TAB PO SCH (07:26)
--- NOTE | 2020-02-21 09:17 | Critical Care Progress Note ---
Date of Service February 21, 2020 Assessment & Plan (1) ST elevation myocardial infarction (STEMI): --STEMI Inferior wall [place] status post 2 stents in RCA Continue with statin. Beta-vale and ERNIE are on hold as the patient is hypotensive We will resume low-dose beta-vale once and the map is better controlled. Continue with [facility] on board, follow recommendations --Hypotension: Resolved Ejection fraction 45 to 50%. With some RV involvement with hypokinesis of the apex. --Active smoker Greater than [id number] smoking history --Prophylaxis Lovenox Patient tolerating diet Discussed with cardiology, stable for downgrade out of ICU versus discharge later today (2) Admitted to intensive care unit: (3) CAD (coronary artery disease): (4) Current smoker: (5) Hypotension: Admission and Anticipated Discharge Date Admission Date: February 19, 2020 Subjective Chest pain-free Physical Exam Physical Exam: General: Alert. nontoxic. Skin: Warm, dry, Head: Atraumatic Ears, nose, mouth and throat: airway patent Cardiovascular: Normal peripheral perfusion Respiratory: no respiratory distress Gastrointestinal: Non distended Musculoskeletal: No deformity Results & Data Results & Data ([facility]) Vital Signs (Past 12 Hours) Vital Signs Temp Pulse Resp BP Pulse Ox 02/21/20 07:45 36.7 C 83 31 H 02/21/20 07:32 94 H 31 H 130/74 95 02/21/20 07:30 97 H 18 95 02/21/20 07:15 74 22 92 02/21/20 07:00 79 16 94 02/21/20 06:48 76 16 112/73 93 02/21/20 06:45 103 H 20 96 02/21/20 06:00 75 28 H 94 02/21/20 05:48 67 24 100/58 L 95 02/21/20 05:00 75 14 90 02/21/20 04:49 80 31 H 92/59 L 90 02/21/20 04:00 36.7 C 82 44 H 92 02/21/20 03:49 85 23 101/71 94 02/21/20 03:00 80 14 95 02/21/20 02:49 74 24 105/59 L 94 02/21/20 02:00 73 26 H 95 02/21/20 01:48 79 27 H 113/54 L 94 02/21/20 01:00 71 22 94 02/21/20 00:48 76 43 H 103/63 92 02/21/20 00:00 36.8 C 73 13 92 02/20/20 23:49 72 25 H 103/57 L 94 02/20/20 23:00 86 24 93 02/20/20 22:29 101 H 36 H 109/75 93 02/20/20 22:00 72 29 H 94 Laboratory Results 02/21/20 02/21/20 02/20/20 Range/Units Unknown 03:16 01:10 Sodium 139 (136-145) mmol/L Potassium 3.9 (3.5-5.1) mmol/L Chloride 111 H (98-107) mmol/L Carbon Dioxide 22 (21-32) mmol/L Anion Gap 6.0 (3-11) BUN 10 D (7-18) mg/dl Creatinine 0.72 (0.6-1.4) mg/dl Est Cr Clr Drug Dosing 143.3 ml/min Est GFR ( Amer) 132.4 Est GFR (Non-Af Amer) 114.3 BUN/Creatinine Ratio 13.3 (10-20) Glucose 96 (70-99) mg/dl Estimat Average Glucose 123 mg/dl Hemoglobin A1c 5.9 H (4.5-5.6) % Calcium 8.1 L (8.5-10.1) mg/dl Phosphorus 2.1 L (2.5-4.9) mg/dl Magnesium 1.9 (1.8-2.4) mg/dl Urine Color Yellow Urine Appearance Clear (Clear) Urine pH 5.0 (4.5-7.5) Ur Specific Pratt 1.015 (1.000-1.030) Urine Protein Negative (Negative) Urine Glucose (UA) Negative (Negative) Urine Ketones 1+ H (Negative) Urine Blood Negative (Negative) Urine Nitrite Negative (Negative) Urine Bilirubin Negative (Negative) Urine Urobilinogen Negative (Negative) Ur Leukocyte Esterase Negative (Negative) Coding Level of Care Code 52372 Subseq Hosp Care Lvl [address] elevation myocardial infarction (STEMI) I21.3 Involved coronary artery: unspecified coronary artery Admitted to intensive care unit Z78.9 CAD (coronary artery disease) I25.10 Current smoker F17.200 Hypotension I95.9 (1) ST elevation myocardial infarction (STEMI) Involved coronary artery: unspecified coronary artery Qualified Code(s): I21.3 - ST elevation (STEMI) myocardial infarction of unspecified site
--- NOTE | 2020-02-21 09:51 | Cardiology Progress Note ---
Date of Service February 21, 2020 Assessment & Plan (1) ST elevation myocardial infarction (STEMI): (2) CAD (coronary artery disease): (3) Hypotension: (4) Dyslipidemia: (5) Current smoker: (6) Paroxysmal ventricular tachycardia: ASSESSMENT/PLAN: 1. Acute Inferior STEMI: Underwent PCI x2 within the RCA. No chest discomfort. No signs or symptoms of CHF. He appears euvolemic. Continue dual anti- platelet therapy for at least 1 year but probably longer as per cath note. We have aspirin samples in the office to supply him before discharge. Discussed with nurse navigator, Leigha Corona, in regards to other anti-platelet agent. She is checking costs between the Brilinta and Plavix. There are potential plans to assist with Brilinta. We also have samples available in the office. If Brilinta is not an option, will load with Plavix 300 mg prior to discharge and then continue Plavix 75 mg daily. Continue high-intensity statin therapy in the form of atorvastatin. Will initiate low-dose beta-vale if tolerated. Recommend p.r.n. nitroglycerin on discharge. Not on DANIEL-inhibitor due to hypotension issues earlier in the hospitalization. 2. Hypotension: Did have some RV involvement based on echo findings. Blood pressure has improved following fluid. Avoiding Daniel inhibitor for now due to issues with hypotension during this hospital stay. Now the blood pressure is better and having episodes of ventricular tachycardia, will once again initiate low-dose beta-vale. 3. Paroxysmal ventricular tachycardia: Has had 2 nonsustained episodes within the first 48 hours of his [place]. Will initiate metoprolol tartrate 25 mg twice daily and see if he tolerates her blood pressure standpoint. He has been asymptomatic. Recommend continue hospitalization within this first 48 hour period. 4. Dyslipidemia: Continue high-intensity statin therapy. 5. Tobacco abuse: Recommended that he stop smoking. 6. Disposition: Recommend that he complete at least 48 hours of his hospitalization which will be later this afternoon. If he has no further events is tolerating beta-vale at that time, can be discharged home. We discussed the importance of taking his medications, especially his anti-platelet agents. Samples are available of his anti-platelet agents to assist him prior to discharge. Awaiting further input from Leigha Corona (nurse navigator) in regards to cost of anti-platelet agent as an outpatient. Follow-up will be arranged by Dr. Brewster, his front desk attendant. Cardiac rehab when available. Plan of care discussed with Dr. Lim of the primary hospitalist service and also Dr. Main of the critical care team. Admission and Anticipated Discharge Date Admission Date: February 19, 2020 Subjective He denies any chest pain or shortness of breath. He denies orthopnea, syncope, near-syncope, lightheadedness, palpitations, edema, or bleeding. His right radial cath site has not been bothersome to him. He has not noted any bleeding. He has had 2 episodes of nonsustained ventricular tachycardia overnight and early this morning and reports no symptoms. He would very much like to go home today as he does have animals at home that rely on him to care for them. Respiratory rate was charted earlier today as 31, but discussed with nursing staff, Dylan, and he states that respiration rate has been normal, not in the 30s. Review of systems: As above. Physical Exam Physical Exam: Gen.: No acute distress. Alert and oriented. HEENT: Anicteric sclera. Neck: No JVD. Cardiac: Regular. Normal S1-S2. No murmurs, rubs, or gallops. Pulmonary: Initially, crackles at the bases, which resolved with coughing. Abdomen: Soft, nontender, nondistended, with normoactive bowel sounds. No bruits noted. Extremities: No edema or cyanosis. Right radial cath site is clean, dry, and intact without erythema or discharge. Psychiatric: Affect appears appropriate. Results & Data ([facility]) Vital Signs (Past 12 Hours) Vital Signs Temp Pulse Resp BP Pulse Ox 02/21/20 09:00 95 H 22 02/21/20 08:45 92 H 16 02/21/20 08:42 36.7 C 85 29 H 135/79 96 02/21/20 08:30 92 H 23 02/21/20 08:15 83 30 H 02/21/20 08:00 92 H 25 H 02/21/20 07:45 36.7 C 83 31 H 02/21/20 07:32 94 H 31 H 130/74 95 02/21/20 07:30 97 H 18 95 02/21/20 07:15 74 22 92 02/21/20 07:00 79 16 94 02/21/20 06:48 76 16 112/73 93 02/21/20 06:45 103 H 20 96 04/13/20 06:00 75 28 H 94 02/21/20 05:48 67 24 100/58 L 95 02/21/20 05:00 75 14 90 02/21/20 04:49 80 31 H 92/59 L 90 02/21/20 04:00 36.7 C 82 44 H 92 02/21/20 03:49 85 23 101/71 94 02/21/20 03:00 80 14 95 02/21/20 02:49 74 24 105/59 L 94 02/21/20 02:00 73 26 H 95 02/21/20 01:48 79 27 H 113/54 L 94 02/21/20 01:00 71 22 94 02/21/20 00:48 76 43 H 103/63 92 02/21/20 00:00 36.8 C 73 13 92 02/20/20 23:49 72 25 H 103/57 L 94 02/20/20 23:00 86 24 93 02/20/20 22:29 101 H 36 H 109/75 93 02/20/20 22:00 72 29 H 94 Intake & Output 02/19/20 02/20/20 02/21/20 02/22/20 06:59 06:59 06:59 06:59 Intake Total 622 / 622 4525.834 / 4525.834 1300 / 1300 Output Total 700 / 700 800 / 800 Balance -78 / -78 3725.834 / 3725.834 1300 / 1300 Weight 88.8 kg 89 kg Laboratory Results Laboratory Results - last 24 hr 02/20/20 02/21/20 02/21/20 01:10 03:16 Unknown Sodium 139 Potassium 3.9 Chloride 111 H Carbon Dioxide 22 Anion Gap 6.0 BUN 10 D Creatinine 0.72 Est Cr Clr Drug Dosing 143.3 Est GFR ( Amer) 132.4 Est GFR (Non-Af Amer) 114.3 BUN/Creatinine Ratio 13.3 Glucose 96 Estimat Average Glucose 123 Hemoglobin A1c 5.9 H Calcium 8.1 L Phosphorus 2.1 L Magnesium 1.9 Urine Color Yellow Urine Appearance Clear Urine pH 5.0 Ur Specific [place] 1.015 Urine Protein Negative Urine Glucose (UA) Negative Urine Ketones 1+ H Urine Blood Negative Urine Nitrite Negative Urine Bilirubin Negative Urine Urobilinogen Negative Ur Leukocyte Esterase Negative Diagnostic Findings Telemetry personally reviewed. Telemetry: Paroxysmal, nonsustained ventricular tachycardia x2 episodes. Otherwise, sinus rhythm. Medications Administered Current Inpatient Medications Acetaminophen (Tylenol) 650 mg PO Q4H PRN PRN Reason: Mild Pain (scale 1-3) Stop: 03/20/20 19:15 Aspirin (Ecotrin Ectab) 81 mg PO QAM [facility] Stop: 03/21/20 08:59 Last Admin: 02/21/20 07:26 Dose: 81 mg Documented by: Atorvastatin Calcium (Lipitor) 80 mg PO QAM [facility] Stop: 03/21/20 08:59 Last Admin: 02/21/20 07:26 Dose: 80 mg Documented by: Enoxaparin Sodium (Lovenox) 40 mg SQ Q24H [facility] Stop: 03/21/20 09:29 Last Admin: 02/21/20 07:26 Dose: 40 mg Documented by: Metoprolol Tartrate (Lopressor) 25 mg PO BID [facility] Stop: 03/22/20 09:59 Miscellaneous (Icu Protocol For Hyperglycemia) 1 ea N/A PRN PRN; Protocol PRN Reason: Hyperglycemia Protocol Stop: 02/21/20 19:15 Nitroglycerin (Nitrostat) 0.4 mg SL PRN PRN PRN Reason: Chest Pain Stop: 03/20/20 19:15 Ondansetron HCl (Zofran) 4 mg IV Q6H PRN PRN Reason: Nausea And Vomiting Stop: 03/20/20 19:15 Ticagrelor (Brilinta) 90 mg PO BID [facility] Stop: 03/21/20 05:59 Last Admin: 02/21/20 07:26 Dose: 90 mg Documented by: PG Care Time/CCT Total # of Minutes Spent Total Time Spent with Patient: Total time spent is greater than 50% in coordination of care (as documented) at patient's floor/unit and/or counseling patient: Coding Level of Care Code 32344 Subseq Hosp Care Lvl [address] elevation myocardial infarction (STEMI) I21.3 Involved coronary artery: unspecified coronary artery CAD (coronary artery disease) I25.10 Hypotension I95.9 Dyslipidemia E78.5 Current smoker F17.200 Paroxysmal ventricular tachycardia I47.2 (1) ST elevation myocardial infarction (STEMI) Involved coronary artery: unspecified coronary artery Qualified Code(s): I21.3 - ST elevation (STEMI) myocardial infarction of unspecified site
[2020-02-21] MEDS ORDERED: METOPROLOL TARTRATE 25 MG TAB PO SCH ×3 (10:00→21:00)
--- NOTE | 2020-02-21 13:34 | Discharge Summary ---
Date of Service February 21, 2020 Admission HPI Per Admitting Provider Pt is a 45yo gentleman with a PMHx significant for prior inferior DE with stent placement in 2018, HLD and tobacco abuse who presents with inferior STEMI once more. States he was at home earlier today getting ready for a friend to come over. In doing so, he moved a motorcycle in his driveway and started having chest pain soon after associated with a "warm feeling" and numbness in his arm that reminded him of his previous DE. Was also SOB. Decided to call 911 after that. Principal Diagnosis STEMI Discharge Exam Constitutional WD/WN, vitals as above Eyes PERRL, conjunctivae normal, anicteric sclerae ENMT external ear and nose normal, oropharynx normal (poor dentition) Neck trachea midline, no thyromegaly Respiratory normal respiratory effort, lungs clear to auscultation Cardiovascular RRR, no murmur, no edema Gastrointestinal (Abdomen) normal bowel sounds, soft, nontender, no hepatosplenomegaly Musculoskeletal no cyanosis or clubbing, extremities motor strength 5/5 Skin no rashes, warm and dry Neurologic patellar DTR's 2+ bilat, sensation intact and PERRL, EOMI, accommodation nl, no face palsy, no dysarthria Psychiatric A+Ox3, euthymic affect Lymphatic no cervical or axillary lymphadenopathy Discharge Data Allergies Allergy/AdvReac Type Severity Reaction Status Date / Time No Known Allergies Allergy Verified 02/19/20 18:09 Consultations 02/19/20 19:15 Consult Cardiology Stat ED Decision to Admit Stat 02/19/20 19:17 Consult Case Management - Discharge Planning Routine Consult Jet Pilot Routine Procedures Performed Operation Date: 02/19/20 18:20 Actual Procedures p Aspiration/PCI w/BOYD for Stemi - Anil Brewster MD s Cath, Left with Cors and Vent - Anil Brewster MD s Cineradiography w/Routine Exam - Anil Brewster MD Ordered Studies 02/19/20 18:11 CL Cath Imgs for PACS use only Stat Hospital Course (1) ST elevation myocardial infarction (STEMI): --STEMI Inferior wall DE status post 2 stents in RCA Continue with statin. Dr. Brewster recommends Brilinta and aspirin patient with difficulty obtaining medications, provided with one month free of Brilinta Lipitor 80mg daily, provided with home pack from pharmacy for one week and then prescribed one additional week while he works on finances, follow up [facility] metoprolol prescribed, tolerating 25mg BID, will also provide home pack and one week prescription patient with h/o DE, he lost insurance, stopped taking prior medications long discussion about the importance of taking prescribed medications to prevent future DE some paroxysmal non-sustained V tach within 48 hours of the event, started on metoprolol will follow up with Dr. Brewster in next few weeks arranged for patient to follow up with [facility] as he has no insurance and low income --Hypotension resolved, likely just some stunned myocardium from DE able to tolerate metoprolol 25mg BID the day of discharge -- Cardiomyopathy Ejection fraction 45 to 50%. With some RV involvement with hypokinesis of the apex. will be on metoprolol BP still too soft to add an Daniel inhibitor, could be added on outpatient follow up --Active smoker Greater than [id number] smoking history With clubbing of the fingers Patient has been advised to quit by admitting, discharging providers as well as several cardiologists --Prophylaxis Lovenox (2) CAD (coronary artery disease): (3) Current smoker: (4) Paroxysmal ventricular tachycardia: (5) Dyslipidemia: Total Time Total Time Spent Total Time Spent (In Minutes): 35 minutes Total Time Includes: Examination of the Patient, Discharge Planning, Medication Reconciliation and Communication With Other Providers (Dr. Corona) Discharge Plan Discharge Items Patient Disposition: Home - Self-Care Reason For Visit: HEART ALERT Discharge Diagnosis: STEMI successful drug eluting stent Dyslipidemia Condition on Discharge: Good Goals: medical management of coronary disease establish with [facility] Activity: Per Instructions section Lifting: None Bathing: No limitations Sexual Activity: Wait until after follow-up appointment Exercise/Sports: Wait until after follow-up appointment Driving/Machine Use: No limitations Weightbearing: Full weightbearing Non-emergency contact: Primary Care Provider and Agriculture Mechanic Call non-emergency contact if: you have any medication questions and your symptoms worsen Follow-up/Referrals: Anil Brewster MD [Physician] - (his office will arrange follow up) [facility],Medicine [Non-Staff] - (Please, call [facility] as soon as possible. *They are accepting new patients and they can help you by providing a primary care provider (family physician) and medications. The office phone number is [phone]. The office is currently open Friday through Friday from 8:30 am - 12:30 am.) Diet: Heart Healthy Addtl Attending Provider Instructions: Medications - ASPIRIN: 81mg daily, you can buy this over the counter - BRILINTA: 90mg twice a day, prescription sent for 30 day supply, you have a coupon for this for free - LIPITOR: 80mg daily, provided you with 7 day supply to hold you over - METOPROLOL: 25mg twice a day, provided you with 7 day supply to hold you over - NITRO: you do not need to fill this at this time, just in case you have chest pain, can take sublingual as needed STEMI (acute heart attack) treated with emergent heart catheterization, drug eluting stent placed you NEED to be compliant with the above medications to prevent further heart attacks aspirin and Brilinta need to be taken every single day, these prevent michele telets from forming clots Lipitor (atorvastatin) needs to be taken every single day, this stabilizes plaques and lowers cholesterol you NEED to quit smoking as this increases your risk of future heart attacks and strokes Dr. Hernandez's office will call you about follow up visit in the next 1-2 weeks please call [facility] to arrange for new patient appointment as soon as possible Pending Studies at Discharge: No Stand-Alone Forms: [facility], Smoking Cessation Medications and DC Order Prescriptions: New atorvastatin 40 mg Tablet 80 mg PO QAM 7 Days Qty: 14 RF: 0 nitroglycerin [Nitrostat] 0.4 mg Tablet, Sublingual 0.4 mg sublingual PRN PRN (Reason: chest pain) 30 Days Qty: 30 RF: 0 metoprolol tartrate 25 mg Tablet 25 mg PO BID 7 Days Qty: 14 RF: 0 Brilinta 90 mg Tablet 90 mg PO BID 30 Days Qty: 60 RF: 1 aspirin 81 mg Tablet,Delayed Release (Dr/Ec) 81 mg PO QAM 30 Days Qty: 30 RF: 5 No Action No Known Home Medications RF: 0 Discharge Orders: Discharge Order (Routine); Ordered 02/21/20 Ordered By: Fritz Lim Admission Data Admit Date/Time: 02/19/20 18:54 Attending Provider: Fritz Lim Admit Provider: Anil Brewster Primary Care Provider: PCP,NO Other Providers: Anil Brewster ; Ej Isbell ; Mariely Melendez Other Interventions: Discharge Summary Assessment (RN) Last Done: 02/21/20 15:19 DC Date/Time DO NOT enter until pt leaves facility: 02/21/20 16:14 Coding Level of Care Code D/C Day Management >[address] elevation myocardial infarction (STEMI) I21.3 Involved coronary artery: unspecified coronary artery CAD (coronary artery disease) I25.10 Current smoker F17.200 Paroxysmal ventricular tachycardia I47.2 Dyslipidemia E78.5
[2020-02-21] MEDS ORDERED: ATORVASTATIN 40 MG TAB PO SCH (14:45)
[2020-02-22] MEDS ORDERED: ATORVASTATIN 40 MG TAB PO SCH (09:00)
== END 2020-02-21 16:14 | disposition home or self-care (01) | DRG 229 ==
LOC: ED 18:00 → CC 18:25 → SUATTDRO 18:54 → 1E 18:54